=== PATIENT | male | born 1950 | race African-American/Black ===

== ENCOUNTER → 2019-11-18 | Outpatient (CLI) | payer MEDICARE ==
[~2019-11-18] MED LIST: CARV12.544 PO; LOSA25TA38 PO
[2019-11-18 08:54] LABS: Urine WBC None Seen /hpf (0 - 3)
[2019-11-18 09:06] LABS: Hematocrit 37.4 % (41.0-53.0); Hemoglobin 12.7 g/dL (13.5-17.5); Mean Corpuscular Hgb Conc. 34.1 g/dL (32.0-36.0); Mean Corpuscular Volume 114.4 fL (80.0-100.0); Platelet Count (auto) 275 10^3/uL (140-450); Red Blood Cells 3.27 10^6/uL (4.5-5.90); White Blood Cell 2.5 10^3/uL (4.4-10.8)
[2019-11-18 09:10] LABS: Band Neutrophils % (manual) 0; Basophils % (manual) 0 (0.0-2.0); Blast Cells 0; Metamyelocytes % 0; Myelocytes % 0; Promyelocytes % 0
[2019-11-18 09:19] LABS: Urine Bacteria NONE SEEN /hpf (None Seen); Urine Blood Negative /uL (Negative)
[2019-11-18 09:32] LABS: % Iron Saturation 42.1 % (20-55)
[2019-11-18 09:34] LABS: Potassium 3.8 mmol/L (3.5-5.1)
[2019-11-18 09:39] LABS: BUN/Creatinine Ratio 8.1; Bilirubin, Total 0.5 mg/dL (0.2-1.0)
[2019-11-18 09:43] LABS: Folate (Folic Acid) 19.95 ng/mL (5.38-24)
[2019-11-18 09:45] LABS: Eosinophils % (manual) 15 (0-7); Lymphocytes % (manual) 24 (10.0-50.0); Monocytes % (manual) 7 (0-12); Reactive Lymphocytes 1
[2019-11-18 09:46] LABS: Prostate Specific Antigen 7.91 ng/mL (0.0-4.0)
[2019-11-19 11:20] LABS: Hepatitis A Ab IgM Negative; Hepatitis B Core IgM Negative; Hepatitis B Surface Antigen Negative (Negative); Hepatitis C Antibody Negative (Negative)
== END | disposition home or self-care (01) ==
LOC: LAB 08:32
PROVIDERS: ATTEND Internal Medicine
DX: I12.9 Hypertensive chronic kidney disease with stage 1 through stage 4 chronic kidney disease, or unspecified chronic kidney disease (principal); N18.2 Chronic kidney disease, stage 2 (mild); R94.5 Abnormal results of liver function studies; D64.9 Anemia, unspecified; Z12.11 Encounter for screening for malignant neoplasm of colon; C32.3 Malignant neoplasm of laryngeal cartilage; R97.20 Elevated prostate specific antigen [PSA]
CPT/HCPCS: 36415; 80053; 80061; 80074; 81001; 82607; 82746; 83540; 83550; 83615; 84153; 84154; 84443; 85007; 85027

== ENCOUNTER → 2020-09-02 | Outpatient (CLI) | payer MEDICARE | END | disposition home or self-care (01) | LOC: XYW 08:17 | PROVIDERS: ATTEND Internal Medicine | DX: I08.1 Rheumatic disorders of both mitral and tricuspid valves (principal); I11.0 Hypertensive heart disease with heart failure; I50.9 Heart failure, unspecified; I42.9 Cardiomyopathy, unspecified | CPT/HCPCS: 93306 ==

== ENCOUNTER → 2024-07-09 | Outpatient (CLI) | payer MEDICARE, OTHER ==
[~2024-07-09] MED LIST changes: +LOSA-533 PO; -LOSA25TA38 PO
== END | disposition home or self-care (01) ==
LOC: XYW 11:13
PROVIDERS: ATTEND Internal Medicine
DX: I08.3 Combined rheumatic disorders of mitral, aortic and tricuspid valves (principal); I50.9 Heart failure, unspecified
CPT/HCPCS: 93306

== ENCOUNTER 2025-02-26 17:25 | Inpatient (IN) | payer MEDICARE, OTHER ==
[~2025-02-26] VITALS: Ht 177.8 cm; Wt 56.5 kg
--- NOTE | 2025-02-26 17:42 | ECG ---
[facility] Test Date: 2025-02-26 Test Time: 17:41:29 Pat Name: KARLA LUNDY Department: ER Room: 0281T Gender: M Bag Bundler: LIZBET : 1950 Requested By: STEPHANIE HURD Order Number: [id number] Reading MD: Donnie Moreno Measurements Intervals [place] Rate: 92 P: -76 [place]: 155 QRS: -26 QRSD: 190 T: 131 QT: 444 QTc: 550 Interpretive Statements Atrial-sensed ventricular-paced complexes No further rhythm analysis attempted due to paced rhythm Left bundle branch block Baseline wander in lead(s) V2,V3 Electronically Signed On 02-27-2025 21:04:12 PDT by Donnie Moreno Please click the below link to view image of tracing.
--- NOTE | 2025-02-26 17:43 | ED.PDOC ---
History of Present Illness HPI Comments 74 year old male presents to the ED with a chief complaint of generalized weakness onset today (02/26/25). Son states the patient was inside house alone, son walked inside and patient was on the ground. Patient is a poor historian, states he was experiencing weakness. Denies LOC, nausea, vomiting, chest pain, shortness of breath, dizziness, blurry vision. No other symptoms or modifying factors present at this time. Vital signs were stable at arrival. Time Seen by MD: 17:35 Primary Care Provider: CLOVIS Reviewed Notes: Nurses Notes, Medications, Allergies Allergies: Coded Allergies: NO KNOWN ALLERGIES (Unverified , 10/12/19) Home Meds Reported Medications Losartan Potassium (Losartan Potassium) 25 Mg Tab, 25 MG PO DAILY for 30 Days, MG 10/12/19 Carvedilol (Carvedilol) 12.5 Mg Tab, 12.5 MG PO Q12HR for 30 Days, MG 10/12/19 Information Source: Patient, Relative Mode of Arrival: Ambulatory Severity: Moderate Timing: Hours Duration: Since onset Prehospital treatment: None Past Medical History PAST MEDICAL HISTORY: Cancer, HTN Surgical History: Pacemaker Family History Family History: Family hx of Cancer Social History Smoker: Non-Smoker Alcohol: Occasionally Drugs: Denies Drug Use Lives In: Home Constitutional: reports: fatigue, weakness; denies: chills, diaphoresis, fever, malaise, sweats, others EENTM: denies: blurred vision, double vision, ear bleeding, ear discharge, ear drainage, ear pain, ear ringing, eye pain, eye redness, hearing loss, mouth pain, mouth swelling, nasal discharge, nose bleeding, nose congestion, nose pain, photophobia, tearing, throat pain, throat swelling, voice changes, others Respiratory: denies: cough, hemoptysis, orthopnea, SOB at rest, shortness of breath, SOB with excertion, stridor, wheezing, others Cardiovascular: denies: chest pain, dizzy spells, diaphoresis, Dyspnea on exertion, edema, irregular heart beat, left arm pain, lightheadedness, palpitations, PND, syncope, others Gastrointestinal: denies: abdomen distended, abdominal pain, blood streaked bowels, constipated, diarrhea, dysphagia, difficulty swallowing, hematemesis, melena, nausea, poor appetite, poor fluid intake, rectal bleeding, rectal pain, vomiting, others Genitourinary: denies: burning, dysuria, flank pain, frequency, hematuria, incontinence, penile discharge, penile sore, pain, testicle pain, testicle swelling, urgency, others Neurological: reports: weakness; denies: dizziness, fainting, headache, left sided numbness, left sided weakness, numbness, paresthesia, pre-existing deficit, right sided numbness, right sided weakness, seizure, speech problems, tingling, tremors, others Musculoskeletal: denies: back pain, gout, joint pain, joint swelling, muscle pain, muscle stiffness, neck pain, others Integumetry: denies: bruises, change in color, change in hair/nails, dryness, laceration, lesions, lumps, rash, wounds, others Allergic/Immunocompromised: denies: Difficulty Healing, Frequent Infections, Hives, Itching, others Hematologic/Lymphatic: denies: anemia, blood clots, easy bleeding, easy bruising, swollen glands, others Endocrine: denies: excessive hunger, excessive sweating, excessive thirst, excessive urination, flushing, intolerance to cold, intolerance to heat, unexplained weight gain, unexplained weight loss, others Psychiatric: denies: anxiety, bipolar disorder, depression, hopeless, panic disorder, schizophrenia, sleepless, suicidal, others All Other Systems: Reviewed and Negative Physical Exam General Appearance: Mild Distress (Patient was in only mild distress at time of evaluation due to generalized weakness. Patient denied any pain concerns.), Thin HEENT: Normal ENT Inspection, Pharynx Normal, TMs Normal Neck: Full Range of Motion, Non-Tender, Normal, Normal Inspection Respiratory: Chest Non-Tender, No Accessory Muscle Use, Other (I appreciated right middle lobe and right upper lobe.) Cardiovascular: No Edema, No JVD, No Murmur, No Gallop, Normal Peripheral Pulses, Regular Rate/Rhythm Breast Exam: Deferred Gastrointestinal: Non Tender, No Pulsatile Mass, Normal Bowel Sounds, Soft Genitalia: Deferred Pelvic: Deferred Rectal: Deferred Extremities: No calf tenderness, Normal capillary refill, Normal inspection, Normal range of motion, Non-tender, No pedal edema Musculoskeletal : Apperance: Normal Neurologic: Alert, No Motor Deficits, Normal Affect, Normal Mood Cerebellar Function: NOT DONE Reflexes: NOT DONE Skin: Dry, Normal Color, Warm Lymphatic: No Adenopathy Was a procedure done? Was a procedure done?: No Differential Dx Considerations may include: Sepsis, electrolyte abnormality, acute coronary syndrome, pneumonia, CHF, dehydration X-Ray, Labs, Meds, VS Vital Signs Date Time Temp Pulse Resp B/P (MAP) Pulse Ox O2 Delivery O2 Flow Rate FiO2 02/26/25 18:01 90 14 163/90 (114) 95 02/26/25 17:55 97.8 92 18 146/88 (107) 97 97.8 02/26/25 17:41 92 Lab Test 02/26/25 18:45 02/26/25 18:32 02/26/25 17:56 02/26/25 17:36 Range/Units Troponin I High Sensitivity 73 *H 81 *H </=54 ng/L POC Glucose 94 114 H 70-106 mg/dl White Blood Count 4.4 4.4-10.8 10^3/uL Red Blood Count 2.73 L 4.5-5.90 10^6/uL Hemoglobin 10.7 L 13.5-17.5 g/dL Hematocrit 30.3 L 41.0-53.0 % Mean Corpuscular Volume 111.2 H 80.0-100.0 fL Mean Corpuscular Hemoglobin 39.2 H 28.0-32.0 pg Mean Corpuscular Hemoglobin Concent 35.3 32.0-36.0 g/dL Red Cell Distribution Width 13.6 11.8-14.3 % Platelet Count 185 140-450 10^3/uL Mean Platelet Volume 7.2 6.9-10.8 fL Neutrophils (%) (Auto) 88.1 H 37.0-80.0 % Lymphocytes (%) (Auto) 4.0 L 10.0-50.0 % Monocytes (%) (Auto) 7.9 0.0-12.0 % Eosinophils (%) (Auto) 0.0 0.0-7.0 % Basophils (%) (Auto) 0.0 0.0-2.0 % Neutrophils # (Auto) 3.9 1.6-8.6 10 ^3/uL Lymphocytes # (Auto) 0.2 L 0.4-5.4 10 ^3/uL Monocytes # (Auto) 0.3 0-1.3 10 ^3/uL Eosinophils # (Auto) 0 0-0.8 10 ^3/uL Basophils # (Auto) 0 0-0.2 10 ^3/uL Nucleated Red Blood Cells 0.0 % Platelet Estimate Adequate Macrocytosis Slight Sodium Level 110 *L 136-145 mmol/L Potassium Level 4.2 3.5-5.1 mmol/L Chloride Level 77 L 98-107 mmol/L Carbon Dioxide Level 22 20-31 mmol/L Anion Gap 11 5-15 Blood Urea Nitrogen 19 9-23 mg/dL Creatinine 1.63 H 0.700-1.30 mg/dL Glomerular Filtration Rate Calc 43 >90 mL/min BUN/Creatinine Ratio 11.7 10.0-20.0 Serum Glucose 102 74-106 mg/dL Lactic Acid Level 3.4 *H 0.4-2.0 mmol/L Calcium Level 9.0 8.7-10.4 mg/dL Total Bilirubin 1.3 H 0.2-1.0 mg/dL Aspartate Amino Transferase (AST) 48 H 13-40 U/L Alanine Aminotransferase (ALT) 16 7-40 U/L Alkaline Phosphatase 54 46-116 U/L B-Type Natriuretic Peptide 3645.84 0-100 pg/mL Total Protein 6.8 5.7-8.2 g/dL Albumin 4.3 3.2-4.8 g/dL X-Ray, Labs, Meds, VS Comment All studies performed the ED were evaluated by me personally. Serum laboratories revealed an anemic state, significant hyponatremia state, elevated lactic acid, elevated troponin, elevated bilirubin and significant acute on chronic CHF concerns. EKG revealed an atrial sensed ventricular paced complex as the patient states he has a pacemaker. Left bundle-branch block was noted and [place] interval was 155 and QT interval was 444. Dr. Billingsley was notified of the elevated troponins and unusual EKG. He stated that the patient was experiencing left bundle-branch block and documentation liaison he will continue to follow after admission. Patient will be admitted for his concerning CHF issues and hyponatremia state. Time of 1ST Reevaluation: 19:33 Reevaluation 1ST: Improved Consultation: PCP, Cardiology Patient Education/Counseling: Diagnosis, Treatment, Prognosis Family Education/Counseling: Diagnosis, Treatment, No Family Present Departure 1 Departure Time of Disposition: 19:33 Impression: Primary Impression: Acute exacerbation of CHF (congestive heart failure) Additional Impressions: Elevated troponin I level Hyponatremia Anemia Elevated lactic acid level Elevated bilirubin Disposition: ADMITTED INPATIENT Condition: Fair Discharged With: Self Critical Care Note Critical Care Time?: No Stability Stability form required: No Heart Score Heart Score: Heart Score Response (Comments) Value History Slightly Suspicious 0 EKG Repolarization Disturb 1 Age >65 2 Risk Factors 1 or 2 risk factors 1 Troponin 1-2 x's Normal limit 1 Total 5 I personally scribed for STEPHANIE HURD PAC ([email or web address]) on 02/26/25 at 17:43. Electronically submitted by Tresa Hastings ([email or web address]). I personally scribed for STEPHANIE HURD PAC ([email or web address]) on 02/26/25 at 17:54. Electronically submitted by Tresa Hastings [email or web address]). STEPHANIE HURD PAC February 26, 2025 17:43
[2025-02-26 18:10] LABS: Basophils # (auto) 0 10 ^3/uL (0-0.2); Eosinophils # (auto) 0 10 ^3/uL (0-0.8); Lymphocytes # (auto) 0.2 10 ^3/uL (0.4-5.4); Monocytes # (auto) 0.3 10 ^3/uL (0-1.3); Red Cell Distribution Width 13.6 % (11.8-14.3)
[2025-02-26 18:12] LABS: Hematocrit 30.3 % (41.0-53.0); Hemoglobin 10.7 g/dL (13.5-17.5); Mean Corpuscular Hemoglobin 39.2 pg (28.0-32.0); Mean Corpuscular Hgb Conc. 35.3 g/dL (32.0-36.0); Mean Corpuscular Volume 111.2 fL (80.0-100.0); Monocytes % (auto) 7.9 % (0.0-12.0); Neutrophils # (auto) 3.9 10 ^3/uL (1.6-8.6); Neutrophils % (auto) 88.1 % (37.0-80.0); Platelet Count (auto) 185 10^3/uL (140-450); Red Blood Cells 2.73 10^6/uL (4.5-5.90); White Blood Cell 4.4 10^3/uL (4.4-10.8)
[2025-02-26 18:22] LABS: Alanine Aminotransferase 16 U/L (7-40); Alkaline Phosphatase 54 U/L (46-116); Anion Gap 11 (5-15); BUN/Creatinine Ratio 11.7 (10.0-20.0); Blood Urea Nitrogen 19 mg/dL (9-23); Carbon Dioxide 22 mmol/L (20-31); Glucose 102 mg/dL (74-106); Potassium 4.2 mmol/L (3.5-5.1); Total Protein 6.8 g/dL (5.7-8.2)
[2025-02-26 18:23] LABS: Albumin 4.3 g/dL (3.2-4.8)
[2025-02-26 18:29] LABS: Aspartate Aminotransferase 48 U/L (13-40); Bilirubin, Total 1.3 mg/dL (0.2-1.0); Chloride 77 mmol/L (98-107)
[2025-02-26 18:31] LABS: Sodium 110 mmol/L (136-145)
[2025-02-26 18:32] LABS: Lactic Acid w/Reflex 3.4 mmol/L (0.4-2.0)
[2025-02-26] MEDS: FUROSEMIDE 100 MG/10ML VIAL IV ONE (19:15)
[2025-02-26] MEDS: SODIUM CHLORIDE 0.9% 1,000 ML IV ONE (19:15)
[2025-02-26 19:19] LABS: Macrocytosis Slight; Platelet Estimate Adequate
[2025-02-26 19:25] VITALS: PULSE 93; RESP 20; O2SAT 99
--- NOTE | 2025-02-26 19:55 | DVH ---
EXAM: XR Chest, 1 View CLINICAL INDICATION: Shortness of breath TECHNIQUE: Frontal view of the chest. COMPARISON: None FINDINGS: LUNGS AND PLEURAL SPACES: See below. HEART: Cardiomegaly with moderate congestion. Left cardiac. MEDIASTINUM: Unremarkable. Normal mediastinal contour. BONES/JOINTS: Unremarkable. No acute fracture. OTHER FINDINGS: . IMPRESSION: Cardiomegaly with moderate congestion.
[2025-02-26] MEDS ORDERED: ONDANSETRON HCL 4 MG/2 ML VIAL IV PRN (20:15)
[2025-02-26] MEDS ORDERED: hydrALAZINE HCL 20 MG/ML VL IV PRN (20:15)
[2025-02-26] MEDS: SODIUM CHLORIDE 1 GM TAB PO ONE (20:15)
[2025-02-26] MEDS ORDERED: ACETAMINOPHEN 325 MG TAB PO PRN (20:15)
[2025-02-26 21:00] VITALS: PULSE 100; RESP 19; O2SAT 99
--- NOTE | 2025-02-26 21:27 | DVHHP2 ---
History of Present Illness Reason for Visit: Acute exacerbation of CHF (congestive heart failure) History of Present Illness The patient is a 74-year-old male with past medical history of throat cancer, CHF, and hypertension who presented to [facility] ED with complaint of generalized weakness. Patient's son reports he was found on the ground extremely weak. Patient was seen and evaluated in the ED, laboratory data shows WBC 4.4, hemoglobin 10.7, hematocrit 30.3, platelets 185, sodium 110, potassium 4.2, BUN 19, creatinine 1.63, glucose 102, total bilirubin 1.3, AST 48, ALT 16, lactic acid 3.4 trending down to 2.0, BNP 3645.84, troponin 81, blood pressure 163/90, heart rate 90, temperature 97.8 F, O2 saturation 98% on oxygen. Chest x-ray revealing cardiomegaly with moderate congestion. Patient was started on IV Lasix, please see medication orders section in the computer. On my assessment, patient denies chest pain, no headache, no dizziness, no diaphoresis, currently on oxygen, no nausea, no vomiting, no fever, no chills. Patient was admitted for further evaluation and medical management. Past Medical History Throat cancer, HTN, CHF Past Surgical History Pacemaker Family History Reviewed, noncontributory to the management of this case. Past Social History The patient lives at home, denies smoking, alcohol or illicit drugs abuse. Review of Systems Constitutional: Yes: Weakness, Other (Fatigue); No: Fever, Chills, Sweats, Malaise Eyes: No: Pain, Vision change, Conjunctivae inflammation, Eyelid inflammation, Other, Redness ENT: No: Ear pain, Ear discharge, Nose pain, Nose discharge, Nose congestion, Mouth pain, Mouth swelling, Throat pain, Throat swelling, Other Respiratory: No: Cough, Dry, Shortness of breath, SOB with excertion, Wheezing, Hemoptysis, Pleuritic Pain, Sputum, Wheezing, Other Cardiovascular: No: Chest Pain, Palpitations, Orthopnea, Paroxysmal Noc. Dyspnea, Edema, Lt Headedness, Other Gastrointestinal: No: Nausea, Vomiting, Abdominal Pain, Diarrhea, Constipation, Melena, Hematochezia, Other Genitourinary: No Dysuria, No Frequency, No Incontinence, No Hematuria, No Retention, No Other Musculoskeletal: No: other, neck pain, shoulder pain, arm pain, back pain, hand pain, leg pain, foot pain Skin: No: Rash, Lesions, Jaundice, Bruising, Other Neurological: Weakness; No: Numbness, Incoordination, Change in speech, Confusion, Seizures, Other Allergies: Coded Allergies: NO KNOWN ALLERGIES (Unverified , 10/12/19) Medications Current Medications Medications Dose Ordered Sig/Earl Route Start Time Stop Time Status Last Admin Dose Admin Furosemide 40 mg DAILY IV 02/27/25 10:00 Carvedilol 3.125 mg Q12HR PO 02/26/25 22:00 Hydralazine HCl 10 mg Q6HP PRN IV 02/26/25 20:15 Aspirin 81 mg DAILY PO 02/27/25 10:00 Sodium Chloride 10 ml Q8HR IV 02/26/25 22:00 Acetaminophen/ Hydrocodone Bitart 1 tab Q4HP PRN PO 02/26/25 20:15 Ondansetron HCl 4 mg Q4HP PRN IV 02/26/25 20:15 Docusate Sodium 100 mg BIDPRN PRN PO 02/26/25 20:15 Acetaminophen 650 mg Q6HP PRN PO 02/26/25 20:15 Exam Vital Signs Vital Signs Date Time Temp Pulse Resp B/P (MAP) Pulse Ox O2 Delivery O2 Flow Rate FiO2 02/26/25 20:57 98.8 93 19 151/88 (109) 99 98.8 02/26/25 19:25 Nasal Cannula* 2 28 General Appearance: Alert, Oriented X3, Cooperative, No acute distress HEENT: Atraumatic, PERRLA, EOMI, Mucous membr. moist/pink Respiratory: Normal air movement, Other (Diminished breath sounds) Cardiovascular: Regular rate, Normal S1, Normal S2, No murmurs Abdominal: Normal bowel sounds, Soft, No tenderness, No hepatospenomegaly, No masses Extremities: No clubbing, No cyanosis, No edema, Normal pulses, No tenderness/swelling Skin: No rashes, No breakdown, No significant lesion Neuro: Normal speech, Normal tone, Sensation intact, Cranial nerves 3-12 NL, Reflexes 2+, Other (Generalized weakness) Psych/Mental Status: Mental status NL, Mood NL Labs/Xrays Labs Test 02/26/25 20:56 02/26/25 19:46 02/26/25 18:32 02/26/25 17:56 Range/Units Lactic Acid Level 2.0 0.4-2.0 mmol/L POC Glucose 94 70-106 mg/dl White Blood Count 4.4 4.4-10.8 10^3/uL Red Blood Count 2.73 L 4.5-5.90 10^6/uL Hemoglobin 10.7 L 13.5-17.5 g/dL Hematocrit 30.3 L 41.0-53.0 % Mean Corpuscular Volume 111.2 H 80.0-100.0 fL Mean Corpuscular Hemoglobin 39.2 H 28.0-32.0 pg Mean Corpuscular Hemoglobin Concent 35.3 32.0-36.0 g/dL Red Cell Distribution Width 13.6 11.8-14.3 % Platelet Count 185 140-450 10^3/uL Mean Platelet Volume 7.2 6.9-10.8 fL Neutrophils (%) (Auto) 88.1 H 37.0-80.0 % Lymphocytes (%) (Auto) 4.0 L 10.0-50.0 % Monocytes (%) (Auto) 7.9 0.0-12.0 % Eosinophils (%) (Auto) 0.0 0.0-7.0 % Basophils (%) (Auto) 0.0 0.0-2.0 % Neutrophils # (Auto) 3.9 1.6-8.6 10 ^3/uL Lymphocytes # (Auto) 0.2 L 0.4-5.4 10 ^3/uL Monocytes # (Auto) 0.3 0-1.3 10 ^3/uL Eosinophils # (Auto) 0 0-0.8 10 ^3/uL Basophils # (Auto) 0 0-0.2 10 ^3/uL Nucleated Red Blood Cells 0.0 % Platelet Estimate Adequate Macrocytosis Slight Sodium Level 110 *L 136-145 mmol/L Potassium Level 4.2 3.5-5.1 mmol/L Chloride Level 77 L 98-107 mmol/L Carbon Dioxide Level 22 20-31 mmol/L Anion Gap 11 5-15 Blood Urea Nitrogen 19 9-23 mg/dL Creatinine 1.63 H 0.700-1.30 mg/dL Glomerular Filtration Rate Calc 43 >90 mL/min BUN/Creatinine Ratio 11.7 10.0-20.0 Serum Glucose 102 74-106 mg/dL Calcium Level 9.0 8.7-10.4 mg/dL Total Bilirubin 1.3 H 0.2-1.0 mg/dL Aspartate Amino Transferase (AST) 48 H 13-40 U/L Alanine Aminotransferase (ALT) 16 7-40 U/L Alkaline Phosphatase 54 46-116 U/L B-Type Natriuretic Peptide 3645.84 0-100 pg/mL Total Protein 6.8 5.7-8.2 g/dL Albumin 4.3 3.2-4.8 g/dL PATIENT: KARLA LUNDY ACCT: [id number] UNIT: [id number] : 1950 LOC: ER ROOM / BED: / AGE / SEX: 74 / M ADM STATUS: REG ER SERVICE 22 ORDERING PHYSICIAN: STEPHANIE HURD PAC PROCEDURE(s): CXRP - CHEST PORTABLE REASON: Shortness of breath ORDER NUMBER(s): [id number], ACCESSION NUMBER(s): [id number] EXAM: XR Chest, 1 View CLINICAL INDICATION: Shortness of breath TECHNIQUE: Frontal view of the chest. COMPARISON: None FINDINGS: LUNGS AND PLEURAL SPACES: See below. HEART: Cardiomegaly with moderate congestion. Left cardiac. MEDIASTINUM: Unremarkable. Normal mediastinal contour. BONES/JOINTS: Unremarkable. No acute fracture. OTHER FINDINGS: IMPRESSION: Cardiomegaly with moderate congestion. Assessment/Plan Assessment/Plan Acute exacerbation of CHF (congestive heart failure) Hyponatremia Acute on chronic renal failure Elevated troponin I level Elevated bilirubin Anemia, unspecified Elevated lactic acid level Generalized weakness Plan 1. Admit to telemetry unit 2. Breathing treatment 3. Pain control management 4. Management of fluids and electrolytes 5. Consultation for hospitalist 6. Diagnostic tests chest x-ray 7. DVT prophylaxis-on aspirin 8. Repeat labs CBC, CMP in a.m. 9. Continue with current medical management 10. Treatment plan discussed with patient and RN. Patient verbalized understanding. Plan discussed with: Patient, Other (RN) My Orders Orders - HAI WADE DNP Procedure Category Date Status Time Furosemide Injection PHA 02/27/25 In Process (Lasix Injection) 10:00 Carvedilol Tablet PHA 02/26/25 In Process (Coreg Tablet) 22:00 Hydralazine Injection PHA 02/26/25 In Process (Apresoline Inject 20:15 *[facility] CONS 02/26/25 Transmitted -[place] 20:10 Aspirin Tablet PHA 02/27/25 In Process 10:00 Allergies PIPPA 02/26/25 In Process 20:10 Code Status CODE 02/26/25 Transmitted 20:10 Sodium Chloride Lock PHA 02/26/25 In Process (Saline Lock Ns) 22:00 Oxygen Per Hour RT 02/26/25 Transmitted 20:10 Hydrocodone-Acet PHA 02/26/25 In Process 5325mg Tab ([place] 20:15 Ondansetron Hcl PHA 02/26/25 In Process (Zofran) 20:15 Docusate Sodium PHA 02/26/25 In Process Capsule (Colace 20:15 Fall Risk Precautions PIPPA 02/26/[address] 20:10 Complete Blood Count LAB 02/27/25 Verified 04:00 Comprehensive LAB 02/27/25 Verified Metabolic Panel 04:00 Cardiac DIET 02/27/25 Transmitted Diet-2gna,Lofat,Lochol Breakfast Echo 2d Mode Cardiac US 02/26/25 Logged DOP 20:10 Condition: Serious PIPPA 02/26/25 In Process 20:10 Acetaminophen Tablet PHA 02/26/25 In Process (Tylenol Tablet) 20:15 Bedrest With Bathroom PIPPA 02/26/25 In Process Privileg 20:10 Sequential PIPPA 02/26/25 In Process Compression Device Admit ADMIT 02/26/25 Verified 21:26 Nitroglycerin [facility] 02/26/25 Verified Sublingual (Ntrostat 21:30 Morphine Sulfate PHA 02/26/25 Verified Injection 21:30 Stat Ekg For Chest [facility] 02/26/25 Verified Pain 21:26 Notify Md Of Changes [facility] 02/26/25 Verified From Base 21:26 Middle School Football Coach For [facility] 02/26/25 Verified 24 Hours 21:26 Emergency Dysrhythmia [facility] 02/26/25 Verified Protocol 21:26 Rhythm Strips Once PIPPA 02/26/25 Verified Every Shift 21:26 Oxygen By Nasal RT 02/26/25 Verified Cannula 21:26 Problem List: (1) Acute exacerbation of CHF (congestive heart failure) (2) Anemia, unspecified (3) Hyponatremia (4) Elevated bilirubin (5) Elevated troponin I level (6) Generalized weakness (7) Acute on chronic renal failure (8) Elevated lactic acid level Date of Service: February 26, 2025 Billing Provider: HAI WADE DNP Common Visit Codes: [id number] INP/OBS CARE (HIGH) HAI WADE DNP February 26, 2025 21:27
[2025-02-26] MEDS ORDERED: MORPHINE SULFATE INJ 2 MG/ml SYRG IV PRN (21:30)
[2025-02-26] MEDS ORDERED: NITROGLYCERIN 0.4 MG SL TAB SL PRN (21:30)
[2025-02-26 21:46] LABS: Anion Gap 10 (5-15); Calcium 9.4 mg/dL (8.7-10.4); Carbon Dioxide 21 mmol/L (20-31)
[2025-02-26 21:51] LABS: BUN/Creatinine Ratio 11.8 (10.0-20.0); Blood Urea Nitrogen 19 mg/dL (9-23); Glucose 92 mg/dL (74-106)
[2025-02-26 21:53] LABS: Chloride 80 mmol/L (98-107)
[2025-02-26 21:57] LABS: Sodium 111 mmol/L (136-145)
[2025-02-26] MEDS: CARVEDILOL 3.125 MG TAB PO SCH (22:09)
[2025-02-26] MEDS: SODIUM CHLOR 0.9% PF (SALINE LOCK) 10ML VIAL/SYR IV SCH (22:10)
[2025-02-26] MEDS: ASPirin 81 mg TAB PO ONE (22:10)
[2025-02-26 23:48] VITALS: BP_SYST 116; BP_SYST 130; BP_DIAS 76; PULSE 74; PULSE 96; RESP 16; RESP 18; RESP 19; TEMP 98; TEMP 98.7; O2SAT 96; O2SAT 98
[2025-02-27] VITALS (7 sets, daily range): BP systolic 124–146; BP diastolic 77–94; PULSE 76–86; RESP 16–19; TEMP 97.5–98; O2SAT 96–100
[2025-02-27] MEDS ORDERED: ASPI-543 PO (01:30)
[2025-02-27 06:57] LABS: Basophils # (auto) 0 10 ^3/uL (0-0.2); Basophils % (auto) 0.1 % (0.0-2.0); Eosinophils # (auto) 0 10 ^3/uL (0-0.8); Monocytes # (auto) 0.3 10 ^3/uL (0-1.3); Neutrophils # (auto) 2.8 10 ^3/uL (1.6-8.6); Red Blood Cells 2.55 10^6/uL (4.5-5.90)
[2025-02-27 07:00] LABS: Eosinophils % (auto) 0.1 % (0.0-7.0); Hematocrit 28.2 % (41.0-53.0); Lymphocytes # (auto) 0.2 10 ^3/uL (0.4-5.4); Lymphocytes % (auto) 7.2 % (10.0-50.0); Mean Corpuscular Hemoglobin 39.3 pg (28.0-32.0); Mean Corpuscular Hgb Conc. 35.6 g/dL (32.0-36.0); Mean Corpuscular Volume 110.4 fL (80.0-100.0); Monocytes % (auto) 9.7 % (0.0-12.0); Neutrophils % (auto) 82.9 % (37.0-80.0); Platelet Count (auto) 155 10^3/uL (140-450); Red Cell Distribution Width 13.7 % (11.8-14.3); White Blood Cell 3.3 10^3/uL (4.4-10.8)
[2025-02-27 07:15] LABS: Alanine Aminotransferase 16 U/L (7-40); Albumin 3.7 g/dL (3.2-4.8); Alkaline Phosphatase 49 U/L (46-116); Anion Gap 9 (5-15); Blood Urea Nitrogen 20 mg/dL (9-23); Calcium 9.2 mg/dL (8.7-10.4); Carbon Dioxide 22 mmol/L (20-31); Glucose 94 mg/dL (74-106); Potassium 3.9 mmol/L (3.5-5.1)
[2025-02-27 07:35] LABS: Aspartate Aminotransferase 46 U/L (13-40); Chloride 80 mmol/L (98-107)
[2025-02-27 07:38] LABS: Sodium 111 mmol/L (136-145)
[2025-02-27] MEDS ORDERED: SODIUM CHLORIDE 0.9% 1,000 ML IV SCH (09:00)
[2025-02-27] MEDS: SODIUM CHL 3% 250 ML IV ONE (09:00)
[2025-02-27] MEDS: FUROSEMIDE 40 MG/4 ML VIAL IV SCH (10:00)
[2025-02-27] MEDS: ASPirin 81 mg TAB PO SCH (10:31)
[2025-02-27] MEDS: FUROSEMIDE 40 MG/4 ML VIAL IV ONE (10:32)
--- NOTE | 2025-02-27 13:30 | DVHINCON2 ---
Date of service: February 27, 2025 Referring Physician bertha Reason for Consultation Hyponatremia Acute kidney injury History of Present Illness 74 years old male with past medical history of throat cancer, Congestive heart failure, hypertension, Chronic kidney disease three, presented with chief comp laints of unable to walk and generalized weakness patient is a poor historian he does not know his medications Nephrology consulted for hyponatremia Home meds noted on med rec Patient denies any headache, denies [employer]CRE[employer] symptoms he answers questions appropriately but says he can not walk for the past 2 to 3 days Past Medical History As per [facility] Past Surgical History Unknown exactly Allergies: Coded Allergies: NO KNOWN ALLERGIES (Unverified , 10/12/19) Home Meds Reported Medications Aspirin (Aspir-Low) 81 Mg Tab, 81 MG PO DAILY for 30 Days, MG 02/27/25 Losartan Potassium (Losartan Potassium) 25 Mg Tab, 25 MG PO DAILY for 30 Days, MG 10/12/19 Carvedilol (Carvedilol) 12.5 Mg Tab, 12.5 MG PO Q12HR for 30 Days, MG 10/12/19 Current Medications Current Medications Medications (Trade) Dose Ordered Sig/Earl Route PRN Reason Start Time Stop Time Status Last Admin Furosemide (Lasix Injection) 40 mg DAILY IV 02/27/25 10:00 Carvedilol (Coreg Tablet) 3.125 mg Q12HR PO 02/26/25 22:00 02/27/25 10:32 Hydralazine HCl (Apresoline Injection) 10 mg Q6HP PRN IV SBP>150 02/26/25 20:15 Aspirin 81 mg DAILY PO 02/27/25 10:00 02/27/25 10:31 Sodium Chloride (Saline Lock Ns) 10 ml Q8HR IV 02/26/25 22:00 02/27/25 05:57 Acetaminophen/ Hydrocodone Bitart (Widen 5/325MG Tab) 1 tab Q4HP PRN PO MODERATE PAIN (4-6 PAIN SCALE) 02/26/25 20:15 Ondansetron HCl (Zofran) 4 mg Q4HP PRN IV NAUSEA / VOMITING 02/26/25 20:15 Docusate Sodium (Colace Capsule) 100 mg BIDPRN PRN PO FOR CONSTIPATION 02/26/25 20:15 Acetaminophen (Tylenol Tablet) 650 mg Q6HP PRN PO PAIN SCALE 1-3 OR TEMP>100.4 02/26/25 20:15 Nitroglycerin (Ntrostat Sublingual) 0.4 mg Q5MINP PRN SL FOR CHEST PAIN 02/26/25 21:30 Morphine Sulfate 2 mg Q30M PRN IV FOR CHEST PAIN 02/26/25 21:30 Sodium Chloride 1,000 ml @ 42 mls/hr [id number] IV 02/27/25 09:00 02/27/25 09:08 DC Family History: Patient reports no known family medical history. Review of Systems As documented in HPI H&P Exam Vital Signs/I&O Vital Sign Date Time Temp Pulse Resp B/P (MAP) Pulse Ox O2 Delivery O2 Flow Rate FiO2 02/27/25 13:04 97.6 76 19 138/90 (106) 99 97.6 02/26/25 23:48 Nasal Cannula* 3 32 Intake and Output 02/26/25 02/27/25 19:00 07:00 Intake Total 1240 ml Balance 1240 ml Intake Oral 240 ml IV Total 1000 ml Physical Exam General-not in any distress HEENT-normocephalic, no icterus, no pallor, neck supple Respiratory-fair air entry bilateral, no rhonchi, no wheeze [id number] heard, no murmurs appreciated Abdominal-soft, nontender, nondistended Musculoskeletal-left leg more swollen right leg no edema positive tenderness both legs Genitourinary-deferred Neuro-awake alert oriented x3, Psychiatric-not agitated, cooperative, Labs/Diagnostic Data Labs/Diagnostic Data Laboratory Tests Test 02/27/25 09:45 02/27/25 06:31 02/26/25 20:56 02/26/25 19:46 Range/Units Sodium Level 112 *L 111 *L 111 *L 136-145 mmol/L White Blood Count 3.3 L 4.4-10.8 10^3/uL Red Blood Count 2.55 L 4.5-5.90 10^6/uL Hemoglobin 10.0 L 13.5-17.5 g/dL Hematocrit 28.2 L 41.0-53.0 % Mean Corpuscular Volume 110.4 H 80.0-100.0 fL Mean Corpuscular Hemoglobin 39.3 H 28.0-32.0 pg Mean Corpuscular Hemoglobin Concent 35.6 32.0-36.0 g/dL Red Cell Distribution Width 13.7 11.8-14.3 % Platelet Count 155 140-450 10^3/uL Mean Platelet Volume 7.3 6.9-10.8 fL Neutrophils (%) (Auto) 82.9 H 37.0-80.0 % Lymphocytes (%) (Auto) 7.2 L 10.0-50.0 % Monocytes (%) (Auto) 9.7 0.0-12.0 % Eosinophils (%) (Auto) 0.1 0.0-7.0 % Basophils (%) (Auto) 0.1 0.0-2.0 % Neutrophils # (Auto) 2.8 1.6-8.6 10 ^3/uL Lymphocytes # (Auto) 0.2 L 0.4-5.4 10 ^3/uL Monocytes # (Auto) 0.3 0-1.3 10 ^3/uL Eosinophils # (Auto) 0 0-0.8 10 ^3/uL Basophils # (Auto) 0 0-0.2 10 ^3/uL Nucleated Red Blood Cells 0.0 % Potassium Level 3.9 4.0 3.5-5.1 mmol/L Chloride Level 80 L 80 L 98-107 mmol/L Carbon Dioxide Level 22 21 20-31 mmol/L Anion Gap 9 10 5-15 Blood Urea Nitrogen 20 19 9-23 mg/dL Creatinine 1.67 H 1.61 H 0.700-1.30 mg/dL Glomerular Filtration Rate Calc 42 44 >90 mL/min BUN/Creatinine Ratio 12.0 11.8 10.0-20.0 Serum Glucose 94 92 74-106 mg/dL Serum Osmolality 238 L 278-298 mOsm/kg Uric Acid 7.5 3.7-9.2 mg/dL Calcium Level 9.2 9.4 8.7-10.4 mg/dL Total Bilirubin 1.0 0.2-1.0 mg/dL Aspartate Amino Transferase (AST) 46 H 13-40 U/L Alanine Aminotransferase (ALT) 16 7-40 U/L Alkaline Phosphatase 49 46-116 U/L Total Protein 6.0 5.7-8.2 g/dL Albumin 3.7 3.2-4.8 g/dL Troponin I High Sensitivity 79 *H </=54 ng/L Lactic Acid Level 2.0 0.4-2.0 mmol/L Test 02/26/25 18:45 02/26/25 18:32 02/26/25 17:56 02/26/25 17:36 Range/Units Troponin I High Sensitivity 73 *H 81 *H </=54 ng/L POC Glucose 94 114 H 70-106 mg/dl White Blood Count 4.4 4.4-10.8 10^3/uL Red Blood Count 2.73 L 4.5-5.90 10^6/uL Hemoglobin 10.7 L 13.5-17.5 g/dL Hematocrit 30.3 L 41.0-53.0 % Mean Corpuscular Volume 111.2 H 80.0-100.0 fL Mean Corpuscular Hemoglobin 39.2 H 28.0-32.0 pg Mean Corpuscular Hemoglobin Concent 35.3 32.0-36.0 g/dL Red Cell Distribution Width 13.6 11.8-14.3 % Platelet Count 185 140-450 10^3/uL Mean Platelet Volume 7.2 6.9-10.8 fL Neutrophils (%) (Auto) 88.1 H 37.0-80.0 % Lymphocytes (%) (Auto) 4.0 L 10.0-50.0 % Monocytes (%) (Auto) 7.9 0.0-12.0 % Eosinophils (%) (Auto) 0.0 0.0-7.0 % Basophils (%) (Auto) 0.0 0.0-2.0 % Neutrophils # (Auto) 3.9 1.6-8.6 10 ^3/uL Lymphocytes # (Auto) 0.2 L 0.4-5.4 10 ^3/uL Monocytes # (Auto) 0.3 0-1.3 10 ^3/uL Eosinophils # (Auto) 0 0-0.8 10 ^3/uL Basophils # (Auto) 0 0-0.2 10 ^3/uL Nucleated Red Blood Cells 0.0 % Platelet Estimate Adequate Macrocytosis Slight Sodium Level 110 *L 136-145 mmol/L Potassium Level 4.2 3.5-5.1 mmol/L Chloride Level 77 L 98-107 mmol/L Carbon Dioxide Level 22 20-31 mmol/L Anion Gap 11 5-15 Blood Urea Nitrogen 19 9-23 mg/dL Creatinine 1.63 H 0.700-1.30 mg/dL Glomerular Filtration Rate Calc 43 >90 mL/min BUN/Creatinine Ratio 11.7 10.0-20.0 Serum Glucose 102 74-106 mg/dL Lactic Acid Level 3.4 *H 0.4-2.0 mmol/L Calcium Level 9.0 8.7-10.4 mg/dL Total Bilirubin 1.3 H 0.2-1.0 mg/dL Aspartate Amino Transferase (AST) 48 H 13-40 U/L Alanine Aminotransferase (ALT) 16 7-40 U/L Alkaline Phosphatase 54 46-116 U/L B-Type Natriuretic Peptide 3645.84 0-100 pg/mL Total Protein 6.8 5.7-8.2 g/dL Albumin 4.3 3.2-4.8 g/dL Assessment Severe hyponatremia symptomatic Acute kidney injury on Chronic kidney disease IIIb unknown baseline available Rule out Congestive heart failure Recommendations 3 percent saline as ordered Check serum osmolality, urine osmolality, urine sodium, uric acid Sodium check every 4 hours Avoid rapid correction no more than 6-8 mEq in 24 hours Continue diuretics We will follow closely Echo pending kidney ultrasound pending Reviewed vital signs, lab work, imaging studies, medications, microbiology, other physician recommendations Total time spent 80 minutes More than 50% of the time spent providing direct hvhi-an-mewa care . Thank you for allowing me to participate in the care of your patient. Plan discussed with: Patient MELINA ROBERTSON MD February 27, 2025 13:30
--- NOTE | 2025-02-27 15:08 | DVH ---
INDICATION: rhiannon TECHNIQUE: Multiple real-time sonographic images of the kidneys and bladder were obtained. COMPARISON: None FINDINGS: The right kidney measures 7.76 cm in length, which is normal in size. There is normal echog enicity of the right kidney. No hydronephrosis. The left kidney measures 7.64 cm in length, which is normal in size. There is normal echogenicity of the left kidney. No hydronephrosis. No large intraluminal masses are seen in the bladder. Prior to voiding the bladder volume measures vo lume 647.9 cc. Bladder wall 0.99 mm patient unable to void. Bilateral pleural effusions IMPRESSION: 1. Right kidney measures 7.76 cm long. Left kidney measures 7.64 cm long. 2. No hydronephrosis on the right and left. 3. Bilateral pleural effusions. 4. Bladder contained 600 and 47.9 mL of urine. Patient had no urge to void.
--- NOTE | 2025-02-27 16:11 | DVHPN2 ---
Subjective in bed resting but having SOB Changes from previous H/P or p: No Changes Eyes: No Pain, No Vision change, No Conjunctivae inflammation, No Eyelid inflammation, No Other, No Redness ENT: No Ear pain, No Ear discharge, No Nose pain, No Nose discharge, No Nose congestion, No Mouth pain, No Mouth swelling, No Throat pain, No Throat swelling, No Other Cardiovascular: No Chest Pain, No Palpitations, No Orthopnea, No Paroxysmal Noc. Dyspnea, No Edema, No Lt Headedness, No Other Respiratory: No Cough, No Dry, No Shortness of breath, No SOB with excertion, No Wheezing, No Hemoptysis, No Pleuritic Pain, No Sputum, No Other Gastrointestinal: No Nausea, No Vomiting, No Abdominal Pain, No Diarrhea, No Constipation, No Melena, No Hematochezia, No Other Genitourinary: No Dysuria, No Frequency, No Incontinence, No Hematuria, No Retention, No Other Musculoskeletal: No other, No neck pain, No shoulder pain, No arm pain, No back pain, No hand pain, No leg pain, No foot pain Skin: No Rash, No Lesions, No Jaundice, No Bruising, No Other Objective Vitals Vital Signs Date Time Temp Pulse Resp B/P (MAP) Pulse Ox O2 Delivery O2 Flow Rate FiO2 02/27/25 13:04 97.6 76 19 138/90 (106) 99 97.6 02/26/25 23:48 Nasal Cannula* 3 32 Intake/Output Intake and Output 02/27/25 07:00 Intake Total 1240 ml Balance 1240 ml Intake Oral 240 ml IV Total 1000 ml General Appearance: Alert, Oriented X3 Lungs: Clear to auscultation Cardiovascular: Regular rate, Normal S1, Normal S2 Medications Current Medications Medications Dose Ordered Sig/Earl Route Start Time Stop Time Status Last Admin Dose Admin Furosemide 40 mg DAILY IV 02/27/25 10:00 Carvedilol 3.125 mg Q12HR PO 02/26/25 22:00 02/27/25 10:32 3.125 MG Hydralazine HCl 10 mg Q6HP PRN IV 02/26/25 20:15 Aspirin 81 mg DAILY PO 02/27/25 10:00 02/27/25 10:31 81 MG Sodium Chloride 10 ml Q8HR IV 02/26/25 22:00 02/27/25 05:57 10 ML Acetaminophen/ Hydrocodone Bitart 1 tab Q4HP PRN PO 02/26/25 20:15 Ondansetron HCl 4 mg Q4HP PRN IV 02/26/25 20:15 Docusate Sodium 100 mg BIDPRN PRN PO 02/26/25 20:15 Acetaminophen 650 mg Q6HP PRN PO 02/26/25 20:15 Nitroglycerin 0.4 mg Q5MINP PRN SL 02/26/25 21:30 Morphine Sulfate 2 mg Q30M PRN IV 02/26/25 21:30 Laboratory Results Laboratory Tests 02/27/25 06:31 02/27/25 14:00 Chemistry Test 02/26/25 17:56 02/26/25 20:56 02/27/25 06:31 Albumin 4.3 g/dL (3.2-4.8) 3.7 g/dL (3.2-4.8) Calcium Level 9.0 mg/dL (8.7-10.4) 9.4 mg/dL (8.7-10.4) 9.2 mg/dL (8.7-10.4) Total Protein 6.8 g/dL (5.7-8.2) 6.0 g/dL (5.7-8.2) Cardiac Markers Test 02/26/25 17:56 B-Type Natriuretic Peptide 3645.84 pg/mL (0-100) LFT Test 02/26/25 17:56 02/27/25 06:31 Alanine Aminotransferase (ALT) 16 U/L (7-40) 16 U/L (7-40) Alkaline Phosphatase 54 U/L (46-116) 49 U/L (46-116) Aspartate Amino Transferase (AST) 48 U/L (13-40) H 46 U/L (13-40) H Total Bilirubin 1.3 mg/dL (0.2-1.0) H 1.0 mg/dL (0.2-1.0) Assessment/Plan Assessment/Plan Acute exacerbation of CHF (congestive heart failure) Hyponatremia Acute on chronic renal failure Elevated troponin I level Elevated bilirubin Anemia, unspecified Elevated lactic acid level Generalized weakness Na improving 110>112 Fluid restriction 1L a day IV lasix Consult nephrology Na levels q 4 hours US Kidneys Plan discussed with: Patient Date of Service: February 27, 2025 Billing Provider: SABRINA ROUSSEAU MD Common Visit Codes: [id number] INP/OBS CARE(HIGH) SABRINA ROUSSEAU MD February 27, 2025 16:11
--- NOTE | 2025-02-27 19:39 | DVHSR ---
APPROVED REPORT EXAM: Two-dimensional and M-mode echocardiogram with Doppler and color Doppler. Blood Pressure: 124/79 mmHg INDICATION CHF Exacerbation RISK FACTORS Height: 5' 10", Weight: 134 DIMENSIONS LVDd5.6 (3.8-5.7cm)LA (2D)5.0 (1.9-4.0cm)Aortic Root3.3 (2.0-3.7cm) LVDs5.4 (2.5-4.0cm)LA (MM) (1.9-4.0cm)Aortic Cusp Exc1.8 (1.5-2.0cm) EF (%) 10.0 (55-70%)Rt. Atrium4.1 (1.9-4.0cm)Asc. Aorta cm IVSd1.2 (0.7-1.1cm)RV (D) (1.8-2.4cm) PWd1.2 (0.7-1.1cm) Mitral Valve MitralMitral Stenosis E wave1.50m/sMV Mean GR.mmHg A wave0.70m/sMV Peak GR.mmHg E/A ratio2.12D MVAcm2 Aortic Valve Aortic ValveAortic Stenosis V10.50m/Rafal Mean GR.2mmHg V21.00m/Rafal Peak GR.4mmHg LVOT Diameter2.0 (1.8-2.4cm)Doppler AVA1.57cm2 AI P 1/2 Uilb186.52ms Pulmonic Valve V21.60m/s Tricuspid Valve TR Velocity3.50m/s [id number] Conclusion Technically a good study, Sinus Rhythm. Bi-atrail enlargement, LV enlargement Vaves are normal. LVEF is low, 10% with decreased RV function. Severe MR, moderate AI, mild PI and moderate TR. Pacing lead noted in RV. No PE or masses noted.
[2025-02-28] VITALS (8 sets, daily range): BP systolic 106–138; BP diastolic 52–78; PULSE 65–89; RESP 17–18; TEMP 97.4–98.2; O2SAT 90–100
[2025-02-28 08:18] LABS: Basophils # (auto) 0 10 ^3/uL (0-0.2); Basophils % (auto) 0.3 % (0.0-2.0); Eosinophils # (auto) 0 10 ^3/uL (0-0.8); Eosinophils % (auto) 0.5 % (0.0-7.0); Lymphocytes # (auto) 0.3 10 ^3/uL (0.4-5.4); Lymphocytes % (auto) 8.1 % (10.0-50.0); Neutrophils # (auto) 3.1 10 ^3/uL (1.6-8.6); Nucleated Red Blood Cells % 0.1 %
[2025-02-28 08:22] LABS: Hematocrit 28.7 % (41.0-53.0); Hemoglobin 10.3 g/dL (13.5-17.5); Mean Corpuscular Hemoglobin 39.7 pg (28.0-32.0); Mean Corpuscular Hgb Conc. 35.8 g/dL (32.0-36.0); Mean Corpuscular Volume 110.9 fL (80.0-100.0); Monocytes # (auto) 0.4 10 ^3/uL (0-1.3); Neutrophils % (auto) 81.1 % (37.0-80.0); Platelet Count (auto) 158 10^3/uL (140-450); Red Blood Cells 2.59 10^6/uL (4.5-5.90); Red Cell Distribution Width 13.9 % (11.8-14.3); White Blood Cell 3.8 10^3/uL (4.4-10.8)
[2025-02-28 08:33] LABS: Alanine Aminotransferase 15 U/L (7-40); Alkaline Phosphatase 46 U/L (46-116); Anion Gap 11 (5-15); BUN/Creatinine Ratio 13.8 (10.0-20.0); Blood Urea Nitrogen 22 mg/dL (9-23); Carbon Dioxide 24 mmol/L (20-31)
[2025-02-28 08:34] LABS: Albumin 3.4 g/dL (3.2-4.8)
[2025-02-28 08:35] LABS: Bilirubin, Total 0.9 mg/dL (0.2-1.0)
[2025-02-28 08:43] LABS: Aspartate Aminotransferase 46 U/L (13-40); Chloride 83 mmol/L (98-107); Glucose 65 mg/dL (74-106); Total Protein 5.6 g/dL (5.7-8.2)
[2025-02-28 08:44] LABS: Sodium 118 mmol/L (136-145)
[2025-02-28] MEDS: SODIUM CHL 3% 250 ML IV ONE (09:30)
[2025-02-28] MEDS: POTASSIUM EFFERVESENT TAB 25 MEQ PO ONE (13:29)
--- NOTE | 2025-02-28 13:47 | DVHPN2 ---
Progress Note Date Seen: February 28, 2025 Medical Necessity Reason Pt with a Central, PICC or Fol: Yes Subjective Patient reports: No new complaints Review of Systems: Deferred Objective vital signs Vital Sign Date Time Temp Pulse Resp B/P (MAP) Pulse Ox O2 Delivery O2 Flow Rate FiO2 02/28/25 13:15 98.1 69 18 130/78 (95) 100 98.1 02/27/25 20:00 Room Air* 0 21 Total Intake and Output 02/27/25 02/27/25 02/28/25 15:00 23:00 07:00 Intake Total 240 ml 300 ml 120 ml Output Total 1050 ml Balance 240 ml 300 ml -930 ml medications Current Medications Medications Dose Ordered Sig/Earl Route Start Time Stop Time Status Last Admin Dose Admin Furosemide 40 mg DAILY IV 02/27/25 10:00 02/28/25 09:28 40 MG Carvedilol 3.125 mg Q12HR PO 02/26/25 22:00 02/28/25 09:28 3.125 MG Hydralazine HCl 10 mg Q6HP PRN IV 02/26/25 20:15 Aspirin 81 mg DAILY PO 02/27/25 10:00 02/28/25 09:27 81 MG Sodium Chloride 10 ml Q8HR IV 02/26/25 22:00 02/28/25 05:55 10 ML Acetaminophen/ Hydrocodone Bitart 1 tab Q4HP PRN PO 02/26/25 20:15 Ondansetron HCl 4 mg Q4HP PRN IV 02/26/25 20:15 Docusate Sodium 100 mg BIDPRN PRN PO 02/26/25 20:15 Acetaminophen 650 mg Q6HP PRN PO 02/26/25 20:15 Nitroglycerin 0.4 mg Q5MINP PRN SL 02/26/25 21:30 Morphine Sulfate 2 mg Q30M PRN IV 02/26/25 21:30 laboratory and microbiology Laboratory Tests 02/28/25 08:03 Test 02/28/25 08:03 Range/Units Serum Glucose 65 L 74-106 mg/dL Problem List/Assessment/Plan Problem List/Assessment/Plan Severe hyponatremia symptomatic Acute kidney injury on Chronic kidney disease IIIb unknown baseline available Rule out Congestive heart failure Recommendations 3 percent saline as ordered Sodium mnitoring Avoid rapid correction no more than 6-8 mEq in 24 hours Continue diuretics We will follow closely sangeetha Plan discussed with: Patient My Orders My Orders Orders - MELINA ROBERTSON MD Procedure Category Date Status Time Insert Leon Catheter PIPPA 02/27/25 In Process 16:22 Sodium Chl 3% PHA 02/28/25 In Process 09:30 Sodium LAB 02/28/25 Logged 18:00 Sodium LAB 03/01/25 Verified 00:00 Sodium LAB 03/01/25 Verified 06:00 Sodium LAB 03/01/25 Verified 12:00 MELINA ROBERTSON MD February 28, 2025 13:47
--- NOTE | 2025-02-28 14:04 | DVHPN2 ---
Subjective in bed resting but having SOB Changes from previous H/P or p: No Changes Eyes: No Pain, No Vision change, No Conjunctivae inflammation, No Eyelid inflammation, No Other, No Redness ENT: No Ear pain, No Ear discharge, No Nose pain, No Nose discharge, No Nose congestion, No Mouth pain, No Mouth swelling, No Throat pain, No Throat swelling, No Other Cardiovascular: No Chest Pain, No Palpitations, No Orthopnea, No Paroxysmal Noc. Dyspnea, No Edema, No Lt Headedness, No Other Respiratory: No Cough, No Dry, No Shortness of breath, No SOB with excertion, No Wheezing, No Hemoptysis, No Pleuritic Pain, No Sputum, No Other Gastrointestinal: No Nausea, No Vomiting, No Abdominal Pain, No Diarrhea, No Constipation, No Melena, No Hematochezia, No Other Genitourinary: No Dysuria, No Frequency, No Incontinence, No Hematuria, No Retention, No Other Musculoskeletal: No other, No neck pain, No shoulder pain, No arm pain, No back pain, No hand pain, No leg pain, No foot pain Skin: No Rash, No Lesions, No Jaundice, No Bruising, No Other Objective Vitals Vital Signs Date Time Temp Pulse Resp B/P (MAP) Pulse Ox O2 Delivery O2 Flow Rate FiO2 02/28/25 13:15 98.1 69 18 130/78 (95) 100 98.1 02/27/25 20:00 Room Air* 0 21 Intake/Output Intake and Output 02/28/25 07:00 Intake Total 660 ml Output Total 1050 ml Balance -390 ml Intake Oral 660 ml Output Urine Total 1050 ml # Voids 2 General Appearance: Alert, Oriented X3 Lungs: Clear to auscultation Cardiovascular: Regular rate, Normal S1, Normal S2 Medications Current Medications Medications Dose Ordered Sig/Earl Route Start Time Stop Time Status Last Admin Dose Admin Furosemide 40 mg DAILY IV 02/27/25 10:00 02/28/25 09:28 40 MG Carvedilol 3.125 mg Q12HR PO 02/26/25 22:00 02/28/25 09:28 3.125 MG Hydralazine HCl 10 mg Q6HP PRN IV 02/26/25 20:15 Aspirin 81 mg DAILY PO 02/27/25 10:00 02/28/25 09:27 81 MG Sodium Chloride 10 ml Q8HR IV 02/26/25 22:00 02/28/25 05:55 10 ML Acetaminophen/ Hydrocodone Bitart 1 tab Q4HP PRN PO 02/26/25 20:15 Ondansetron HCl 4 mg Q4HP PRN IV 02/26/25 20:15 Docusate Sodium 100 mg BIDPRN PRN PO 02/26/25 20:15 Acetaminophen 650 mg Q6HP PRN PO 02/26/25 20:15 Nitroglycerin 0.4 mg Q5MINP PRN SL 02/26/25 21:30 Morphine Sulfate 2 mg Q30M PRN IV 02/26/25 21:30 Laboratory Results Laboratory Tests 02/28/25 08:03 Chemistry Test 02/28/25 08:03 Albumin 3.4 g/dL (3.2-4.8) Calcium Level 9.0 mg/dL (8.7-10.4) Total Protein 5.6 g/dL (5.7-8.2) L LFT Test 02/28/25 08:03 Alanine Aminotransferase (ALT) 15 U/L (7-40) Alkaline Phosphatase 46 U/L (46-116) Aspartate Amino Transferase (AST) 46 U/L (13-40) H Total Bilirubin 0.9 mg/dL (0.2-1.0) Assessment/Plan Assessment/Plan Acute exacerbation of CHF (congestive heart failure) Hyponatremia Acute on chronic renal failure Elevated troponin I level Elevated bilirubin Anemia, unspecified Elevated lactic acid level Generalized weakness Na improving 110>112>118 Fluid restriction 1L a day IV lasix Consult nephrology Na levels q 4 hours US Kidneys Plan discussed with: Patient Date of Service: February 28, 2025 Billing Provider: SABRINA ROUSSEAU MD Common Visit Codes: [id number] INP/OBS CARE(HIGH) SABRINA ROUSSEAU MD February 28, 2025 14:04
[2025-03-01] VITALS (9 sets, daily range): BP systolic 112–132; BP diastolic 63–94; PULSE 70–75; RESP 16–18; TEMP 97.5–98; O2SAT 96–100
[2025-03-01 06:03] LABS: Basophils # (auto) 0 10 ^3/uL (0-0.2); Eosinophils # (auto) 0 10 ^3/uL (0-0.8); Lymphocytes # (auto) 0.4 10 ^3/uL (0.4-5.4); Monocytes # (auto) 0.3 10 ^3/uL (0-1.3); Red Cell Distribution Width 13.9 % (11.8-14.3)
[2025-03-01 06:09] LABS: Basophils % (auto) 0.2 % (0.0-2.0); Eosinophils % (auto) 0.8 % (0.0-7.0); Hematocrit 29.9 % (41.0-53.0); Hemoglobin 10.9 g/dL (13.5-17.5); Lymphocytes % (auto) 11.4 % (10.0-50.0); Mean Corpuscular Hemoglobin 40.2 pg (28.0-32.0); Mean Corpuscular Volume 110.2 fL (80.0-100.0); Neutrophils # (auto) 2.8 10 ^3/uL (1.6-8.6); Neutrophils % (auto) 79.6 % (37.0-80.0); Nucleated Red Blood Cells % 0.2 %; Platelet Count (auto) 173 10^3/uL (140-450); Red Blood Cells 2.71 10^6/uL (4.5-5.90); White Blood Cell 3.5 10^3/uL (4.4-10.8)
[2025-03-01 06:26] LABS: Alanine Aminotransferase 16 U/L (7-40); Albumin 3.6 g/dL (3.2-4.8); Alkaline Phosphatase 50 U/L (46-116); Anion Gap 8 (5-15); BUN/Creatinine Ratio 13.1 (10.0-20.0); Blood Urea Nitrogen 21 mg/dL (9-23); Calcium 8.9 mg/dL (8.7-10.4); Carbon Dioxide 27 mmol/L (20-31); Glucose 81 mg/dL (74-106); Total Protein 5.8 g/dL (5.7-8.2)
[2025-03-01 06:36] LABS: Aspartate Aminotransferase 45 U/L (13-40); Chloride 87 mmol/L (98-107); Potassium 3.4 mmol/L (3.5-5.1); Sodium 122 mmol/L (136-145)
[2025-03-01 06:40] LABS: Mean Corpuscular Hgb Conc. 36.5 g/dL (32.0-36.0)
[2025-03-01 08:19] LABS: Bilirubin, Total 0.7 mg/dL (0.2-1.0)
[2025-03-01 11:21] LABS: Magnesium 1.3 mg/dL (1.6-2.6)
[2025-03-01 11:22] LABS: Phosphorus 3.3 mg/dL (2.4-5.1)
--- NOTE | 2025-03-01 12:28 | DVHPN2 ---
Progress Note Date Seen: March 01, 2025 Medical Necessity Reason Pt with a Central, PICC or Fol: No Subjective Patient reports: No new complaints Review of Systems: HEENT:Normal, CVS:Normal, RESPIRATORY:Normal, GI:Normal, :Normal, MSK:Normal, NEURO:Normal Objective vital signs Vital Sign Date Time Temp Pulse Resp B/P (MAP) Pulse Ox O2 Delivery O2 Flow Rate FiO2 03/01/25 09:35 72 132/69 03/01/25 08:30 97.6 18 98 97.6 03/01/25 08:00 Room Air* 0 21 Total Intake and Output 02/28/25 02/28/25 03/01/25 15:00 23:00 07:00 Intake Total 118 ml 320 ml 380 ml Output Total 2500 ml 1000 ml Balance 118 ml -2180 ml -620 ml medications Current Medications Medications Dose Ordered Sig/Earl Route Start Time Stop Time Status Last Admin Dose Admin Furosemide 40 mg DAILY IV 02/27/25 10:00 03/01/25 09:35 40 MG Carvedilol 3.125 mg Q12HR PO 02/26/25 22:00 03/01/25 09:35 3.125 MG Hydralazine HCl 10 mg Q6HP PRN IV 02/26/25 20:15 Aspirin 81 mg DAILY PO 02/27/25 10:00 03/01/25 09:34 81 MG Sodium Chloride 10 ml Q8HR IV 02/26/25 22:00 03/01/25 06:01 10 ML Acetaminophen/ Hydrocodone Bitart 1 tab Q4HP PRN PO 02/26/25 20:15 Ondansetron HCl 4 mg Q4HP PRN IV 02/26/25 20:15 Docusate Sodium 100 mg BIDPRN PRN PO 02/26/25 20:15 Acetaminophen 650 mg Q6HP PRN PO 02/26/25 20:15 Nitroglycerin 0.4 mg Q5MINP PRN SL 02/26/25 21:30 Morphine Sulfate 2 mg Q30M PRN IV 02/26/25 21:30 Potassium Chloride 100 ml @ 50 mls/hr Q2H IV 03/01/25 10:30 03/01/25 14:29 UNV Examination: GENERAL:Normal, HEENT:Normal, NECK:Normal, LUNGS:Normal, CVS:Normal, ABDOMEN:Normal, MSK:Normal, SKIN:Normal, NEURO:Normal, :Normal laboratory and microbiology Laboratory Tests 03/01/25 11:50 03/01/25 05:06 Test 03/01/25 05:06 Range/Units Serum Glucose 81 74-106 mg/dL Problem List/Assessment/Plan Problem List/Assessment/Plan #1 acute on chronic systolic heart failure: lasix iv #2 hyponatremia: improving #3 s/p pacer #4 h/o laryngeal cancer #5 anemia #6 htn #7 ckd stage 3 a advance care planning- full code- time spent 19 mins Plan discussed with: Patient My Orders My Orders Orders - CHRIS CHESTER MD Procedure Category Date Status Time * Cardiology Consult CONS 03/01/25 Transmitted 12:17 Potassium Effervesent PHA 03/01/25 Transmitted Tab (Klor-Con/Ef) 12:30 Magnesium Andrea PHA 03/01/25 Transmitted 13:00 Basic Metabolic Panel LAB 03/02/25 Verified 06:00 Magnesium LAB 03/02/25 Verified 05:00 Urinalysis LAB 03/01/25 Uncollected 12:17 Pt Request For Service PT 03/01/25 Transmitted 12:17 Date of Service: March 01, 2025 Billing Provider: CHRIS CHESTER MD Common Visit Codes: [id number] INP/OBS CARE(HIGH) Secondary Visit Codes: [id number] CARE PLAN 30 MINUTES CHRIS CHESTER MD March 01, 2025 12:28
--- NOTE | 2025-03-01 13:01 | DVHINCON2 ---
Date of service: March 01, 2025 History of Present Illness 74 yo M with NICM EF 30% in past, now down to 10%, hx of laryngeal cancer, ICD admitted for weakness. echo shows worsening chf. pt sees dr younger Past Medical History reviewed Family History: Patient reports no known family medical history. Allergies: Coded Allergies: NO KNOWN ALLERGIES (Unverified , 10/12/19) Home Meds Reported Medications Aspirin (Aspir-Low) 81 Mg Tab, 81 MG PO DAILY for 30 Days, MG 02/27/25 Losartan Potassium (Losartan Potassium) 25 Mg Tab, 25 MG PO DAILY for 30 Days, MG 10/12/19 Carvedilol (Carvedilol) 12.5 Mg Tab, 12.5 MG PO Q12HR for 30 Days, MG 10/12/19 Current Medications Current Medications Medications (Trade) Dose Ordered Sig/Earl Route PRN Reason Start Time Stop Time Status Last Admin Potassium Chloride 100 ml @ 50 mls/hr Q2H IV 03/01/25 10:30 03/01/25 14:29 Magnesium Sulfate/ Dextrose 100 ml @ 100 mls/hr Q1HR IV 03/01/25 13:00 03/01/25 14:59 Review of Systems 10 pt ros otherwise negative Vital Signs Vital Signs Date Time Temp Pulse Resp B/P (MAP) Pulse Ox O2 Delivery O2 Flow Rate FiO2 03/01/25 12:36 97.5 72 18 118/94 (102) 99 97.5 03/01/25 08:00 Room Air* 0 21 Physical Exam nad s1 s2 rrr ctab soft nt/nd no edema Labs/Diagnostic Data Labs Test 03/01/25 11:50 03/01/25 05:06 02/27/25 06:31 02/26/25 20:56 Range/Units Sodium Level 123 L 136-145 mmol/L White Blood Count 3.5 L 4.4-10.8 10^3/uL Red Blood Count 2.71 L 4.5-5.90 10^6/uL Hemoglobin 10.9 L 13.5-17.5 g/dL Hematocrit 29.9 L 41.0-53.0 % Mean Corpuscular Volume 110.2 H 80.0-100.0 fL Mean Corpuscular Hemoglobin 40.2 H 28.0-32.0 pg Mean Corpuscular Hemoglobin Concent 36.5 H 32.0-36.0 g/dL Red Cell Distribution Width 13.9 11.8-14.3 % Platelet Count 173 140-450 10^3/uL Mean Platelet Volume 7.5 6.9-10.8 fL Neutrophils (%) (Auto) 79.6 37.0-80.0 % Lymphocytes (%) (Auto) 11.4 10.0-50.0 % Monocytes (%) (Auto) 8.0 0.0-12.0 % Eosinophils (%) (Auto) 0.8 0.0-7.0 % Basophils (%) (Auto) 0.2 0.0-2.0 % Neutrophils # (Auto) 2.8 1.6-8.6 10 ^3/uL Lymphocytes # (Auto) 0.4 0.4-5.4 10 ^3/uL Monocytes # (Auto) 0.3 0-1.3 10 ^3/uL Eosinophils # (Auto) 0 0-0.8 10 ^3/uL Basophils # (Auto) 0 0-0.2 10 ^3/uL Nucleated Red Blood Cells 0.2 % Potassium Level 3.4 L 3.5-5.1 mmol/L Chloride Level 87 L 98-107 mmol/L Carbon Dioxide Level 27 20-31 mmol/L Anion Gap 8 5-15 Blood Urea Nitrogen 21 9-23 mg/dL Creatinine 1.60 H 0.700-1.30 mg/dL Glomerular Filtration Rate Calc 44 >90 mL/min BUN/Creatinine Ratio 13.1 10.0-20.0 Serum Glucose 81 74-106 mg/dL Calcium Level 8.9 8.7-10.4 mg/dL Phosphorus Level 3.3 2.4-5.1 mg/dL Magnesium Level 1.3 L 1.6-2.6 mg/dL Total Bilirubin 0.7 0.2-1.0 mg/dL Aspartate Amino Transferase (AST) 45 H 13-40 U/L Alanine Aminotransferase (ALT) 16 7-40 U/L Alkaline Phosphatase 50 46-116 U/L Total Protein 5.8 5.7-8.2 g/dL Albumin 3.6 3.2-4.8 g/dL Vitamin D 25-Hydroxy 41.5 30.0-100 ng/mL Serum Osmolality 238 L 278-298 mOsm/kg Uric Acid 7.5 3.7-9.2 mg/dL Troponin I High Sensitivity 79 *H </=54 ng/L Test 02/26/25 19:46 02/26/25 18:32 02/26/25 17:56 Range/Units Lactic Acid Level 2.0 0.4-2.0 mmol/L POC Glucose 94 70-106 mg/dl Platelet Estimate Adequate Macrocytosis Slight B-Type Natriuretic Peptide 3645.84 0-100 pg/mL Assessment severe class III systolic and diastolic acute on chronic HF ckd hx of ICD NICM hyponatremia larylngeal cancer severe hyponatremai Plan/Recommendation [facility] in 2019 was - likely NICM with low dose trop 2/2 to type 2 nstemi severe hf very low NA needs advanced HF therapy, recommend BB, entresto if feasible, jardiance for HF avoid over diuresis but bnp is very high , needs some diuretic Plan discussed with: Patient ADIA SOTO MD March 01, 2025 13:01
[2025-03-01] MEDS: POTASSIUM EFFERVESENT TAB 25 MEQ PO ONE (13:30)
[2025-03-01] MEDS: POTASSIUM CHL 20MEQ/100ML 100 ML IV SCH (13:41)
[2025-03-01 13:55] LABS: Urine Bacteria None Seen /hpf (None Seen)
[2025-03-01 14:01] LABS: Urine Bacteria None Seen /hpf (None Seen)
[2025-03-01 14:11] LABS: Sodium Urine 79 mmol/L (40-220)
[2025-03-01 14:13] LABS: Urine Blood 3+ /uL (Negative); Urine Clarity Clear (Clear); Urine Color Light-Yellow (Yellow); Urine Protein, UAD Negative (Negative); Urine Specific Gravity 1.006 (1.001-1.035); Urine Squamous Epithelial Cell FEW /hpf (<5); Urine Urobilinogen 2 mg/dL (Negative); Urine WBC 4 /HPF (0-3)
[2025-03-01 14:14] LABS: Urine Blood 3+ /uL (Negative); Urine Clarity Clear (Clear); Urine Color Light-Yellow (Yellow); Urine Protein, UAD Negative (Negative); Urine Specific Gravity 1.006 (1.001-1.035); Urine Squamous Epithelial Cell None Seen /hpf (<5); Urine Urobilinogen 2 mg/dL (Negative); Urine WBC 14 /HPF (0-3)
[2025-03-01 14:18] LABS: Creatinine, Urine 25.91 mg/dL (30.0-125.0); Urine Protein/Creatinine Ratio 0.23
[2025-03-01 14:19] LABS: Protein, Urine < 6.0 mg/dL (1-14)
--- NOTE | 2025-03-01 14:49 | DVHPN2 ---
Progress Note Date Seen: March 01, 2025 Medical Necessity Reason Pt with a Central, PICC or Fol: No Subjective Patient reports: No new complaints Other Systems: Patient seen and examined by myself today in rounds Objective vital signs Vital Sign Date Time Temp Pulse Resp B/P (MAP) Pulse Ox O2 Delivery O2 Flow Rate FiO2 03/01/25 12:36 97.5 72 18 118/94 (102) 99 97.5 03/01/25 08:00 Room Air* 0 21 Total Intake and Output 02/28/25 02/28/25 03/01/25 15:00 23:00 07:00 Intake Total 118 ml 320 ml 380 ml Output Total 2500 ml 1000 ml Balance 118 ml -2180 ml -620 ml medications Current Medications Medications Dose Ordered Sig/Earl Route Start Time Stop Time Status Last Admin Dose Admin Furosemide 40 mg DAILY IV 02/27/25 10:00 03/01/25 09:35 40 MG Carvedilol 3.125 mg Q12HR PO 02/26/25 22:00 03/01/25 09:35 3.125 MG Hydralazine HCl 10 mg Q6HP PRN IV 02/26/25 20:15 Aspirin 81 mg DAILY PO 02/27/25 10:00 03/01/25 09:34 81 MG Sodium Chloride 10 ml Q8HR IV 02/26/25 22:00 03/01/25 06:01 10 ML Acetaminophen/ Hydrocodone Bitart 1 tab Q4HP PRN PO 02/26/25 20:15 Ondansetron HCl 4 mg Q4HP PRN IV 02/26/25 20:15 Docusate Sodium 100 mg BIDPRN PRN PO 02/26/25 20:15 Acetaminophen 650 mg Q6HP PRN PO 02/26/25 20:15 Nitroglycerin 0.4 mg Q5MINP PRN SL 02/26/25 21:30 Morphine Sulfate 2 mg Q30M PRN IV 02/26/25 21:30 Magnesium Sulfate/ Dextrose 100 ml @ 100 mls/hr Q1HR IV 03/01/25 13:00 03/01/25 14:59 Sacubitril/ Valsartan 1 tab BID PO 03/01/25 22:00 UNV Examination: LUNGS:Normal, LUNGS:Abnormal, MSK:Normal laboratory and microbiology Laboratory Tests 03/01/25 11:50 03/01/25 05:06 Test 03/01/25 05:06 Range/Units Serum Glucose 81 74-106 mg/dL Problem List/Assessment/Plan Problem List/Assessment/Plan Acute kidney injury on Chronic kidney disease IIIb unknown baseline available CHF exacerbation Hyponatremia due to excess H2O intake Hypomagnesemia Hypokalemia Anemia of CKD REC: I agree with diouresis Fluids restriction KCl replacement Magnseium sulfate IVPB @ill continue to follow Plan discussed with: Patient My Orders My Orders Orders - ASHWIN ZULETA MD Procedure Category Date Status Time Osmolality Urine LAB 03/01/25 In Process 10:21 Maintain Fluid PIPPA 03/01/25 In Process Restrictions 10:23 ASHWIN ZULETA MD March 01, 2025 14:49
[2025-03-01] MEDS: MAGNESIUM SULFATE 1GM/100ML 100 ML IV SCH ×2 (18:50→20:45)
[2025-03-01] MEDS: HYDROcodone-ACET 5/325MG TAB PO PRN (20:45)
[2025-03-01] MEDS: SACUBITRIL-VALSARTAN 24mg/26mg TAB PO SCH (22:25)
[2025-03-02] VITALS (9 sets, daily range): BP systolic 106–140; BP diastolic 57–83; PULSE 63–87; RESP 16–18; TEMP 97.5–97.9; O2SAT 95–100
[2025-03-02 06:26] LABS: Anion Gap 5 (5-15)
[2025-03-02 06:27] LABS: Calcium 8.8 mg/dL (8.7-10.4)
[2025-03-02 06:32] LABS: BUN/Creatinine Ratio 9.6 (10.0-20.0); Blood Urea Nitrogen 15 mg/dL (9-23); Glucose 91 mg/dL (74-106); Magnesium 1.9 mg/dL (1.6-2.6)
[2025-03-02 06:33] LABS: Carbon Dioxide 31 mmol/L (20-31); Chloride 87 mmol/L (98-107); Potassium 3.4 mmol/L (3.5-5.1); Sodium 123 mmol/L (136-145)
--- NOTE | 2025-03-02 10:36 | DVHPN2 ---
Progress Note Date Seen: March 02, 2025 Medical Necessity Reason Pt with a Central, PICC or Fol: No Subjective Other Systems: Patient seen and examined by myself today in follow-up Objective vital signs Vital Sign Date Time Temp Pulse Resp B/P (MAP) Pulse Ox O2 Delivery O2 Flow Rate FiO2 03/02/25 05:00 97.7 80 18 140/83 (102) 100 97.7 03/01/25 20:18 Room Air* 0 21 Total Intake and Output 03/01/25 03/01/25 03/02/25 15:00 23:00 07:00 Intake Total 100 ml 425 ml 300 ml Output Total 1200 ml 400 ml Balance 100 ml -775 ml -100 ml medications Current Medications Medications Dose Ordered Sig/Earl Route Start Time Stop Time Status Last Admin Dose Admin Furosemide 40 mg DAILY IV 02/27/25 10:00 03/01/25 09:35 40 MG Carvedilol 3.125 mg Q12HR PO 02/26/25 22:00 03/01/25 20:45 3.125 MG Hydralazine HCl 10 mg Q6HP PRN IV 02/26/25 20:15 Aspirin 81 mg DAILY PO 02/27/25 10:00 03/01/25 09:34 81 MG Sodium Chloride 10 ml Q8HR IV 02/26/25 22:00 03/02/25 05:21 10 ML Acetaminophen/ Hydrocodone Bitart 1 tab Q4HP PRN PO 02/26/25 20:15 03/01/25 20:45 1 TAB Ondansetron HCl 4 mg Q4HP PRN IV 02/26/25 20:15 Docusate Sodium 100 mg BIDPRN PRN PO 02/26/25 20:15 Acetaminophen 650 mg Q6HP PRN PO 02/26/25 20:15 Nitroglycerin 0.4 mg Q5MINP PRN SL 02/26/25 21:30 Morphine Sulfate 2 mg Q30M PRN IV 02/26/25 21:30 Sacubitril/ Valsartan 1 tab BID PO 03/01/25 22:00 03/01/25 22:25 1 TAB laboratory and microbiology Laboratory Tests 03/02/25 05:13 03/01/25 05:06 Test 03/02/25 05:13 Range/Units Serum Glucose 91 74-106 mg/dL Problem List/Assessment/Plan Problem List/Assessment/Plan Acute kidney injury on Chronic kidney disease IIIb unknown baseline available CHF exacerbation Hyponatremia due to excess H2O intake and water retention Hypomagnesemia Hypokalemia Laryngeal carcinoma Anemia of CKD REC: Kidney function stable Chronic Kidney Disease stage 3 B Increased urine output Strict I&O Fluids restriction Agree with diuresis KCl replacement Magnesium sulfate IVPB Well continue to follow Plan discussed with: Patient ASHWIN ZULETA MD March 02, 2025 10:36
--- NOTE | 2025-03-02 11:15 | DVHPN2 ---
Progress Note Date Seen: March 02, 2025 Medical Necessity Reason Pt with a Central, PICC or Fol: No Subjective Patient reports: No new complaints Review of Systems: HEENT:Normal, CVS:Normal, RESPIRATORY:Normal, GI:Normal, :Normal, MSK:Normal, NEURO:Normal Objective vital signs Vital Sign Date Time Temp Pulse Resp B/P (MAP) Pulse Ox O2 Delivery O2 Flow Rate FiO2 03/02/25 10:38 74 110/69 03/02/25 09:00 97.8 18 100 97.8 03/02/25 07:50 Room Air* 0 21 Total Intake and Output 03/01/25 03/01/25 03/02/25 15:00 23:00 07:00 Intake Total 100 ml 425 ml 300 ml Output Total 1200 ml 400 ml Balance 100 ml -775 ml -100 ml medications Current Medications Medications Dose Ordered Sig/Earl Route Start Time Stop Time Status Last Admin Dose Admin Furosemide 40 mg DAILY IV 02/27/25 10:00 03/02/25 10:38 40 MG Carvedilol 3.125 mg Q12HR PO 02/26/25 22:00 03/02/25 10:38 3.125 MG Hydralazine HCl 10 mg Q6HP PRN IV 02/26/25 20:15 Aspirin 81 mg DAILY PO 02/27/25 10:00 03/02/25 10:37 81 MG Sodium Chloride 10 ml Q8HR IV 02/26/25 22:00 03/02/25 05:21 10 ML Acetaminophen/ Hydrocodone Bitart 1 tab Q4HP PRN PO 02/26/25 20:15 03/01/25 20:45 1 TAB Ondansetron HCl 4 mg Q4HP PRN IV 02/26/25 20:15 Docusate Sodium 100 mg BIDPRN PRN PO 02/26/25 20:15 Acetaminophen 650 mg Q6HP PRN PO 02/26/25 20:15 Nitroglycerin 0.4 mg Q5MINP PRN SL 02/26/25 21:30 Morphine Sulfate 2 mg Q30M PRN IV 02/26/25 21:30 Sacubitril/ Valsartan 1 tab BID PO 03/01/25 22:00 03/01/25 22:25 1 TAB Examination: GENERAL:Normal, HEENT:Normal, NECK:Normal, LUNGS:Normal, CVS:Normal, ABDOMEN:Normal, MSK:Normal, SKIN:Normal, NEURO:Normal, :Normal laboratory and microbiology Laboratory Tests 03/02/25 05:13 03/01/25 05:06 Test 03/02/25 05:13 Range/Units Serum Glucose 91 74-106 mg/dL Problem List/Assessment/Plan Problem List/Assessment/Plan #1 acute on chronic systolic heart failure: lasix iv #2 hyponatremia: improving, free water restriction #3 s/p pacer #4 h/o laryngeal cancer #5 anemia #6 htn #7 ckd stage 3 a advance care planning- full code- time spent 19 mins Plan discussed with: Patient My Orders My Orders Orders - CHRIS CHESTER MD Procedure Category Date Status Time * Cardiology Consult CONS 03/01/25 Transmitted 12:17 Pt Request For Service PT 03/01/25 Logged 12:17 Maintain Fluid PIPPA 03/01/25 In Process Restrictions 12:25 Date of Service: March 02, 2025 Billing Provider: CHRIS CHESTER MD Common Visit Codes: [id number] INP/OBS CARE(HIGH) CHRIS CHESTER MD March 02, 2025 11:15
[2025-03-02] MEDS: POTASSIUM EFFERVESENT TAB 25 MEQ PO ONE (11:41)
[2025-03-02] MEDS: MAGNESIUM SULFATE 1GM/100ML 100 ML IV SCH (11:42)
--- NOTE | 2025-03-02 16:56 | DVHPN2 ---
Consult Progress Note Subjective Other Systems: Patient denies any cardiac symptoms at time of assessment Objective vital signs Vital Sign Date Time Temp Pulse Resp B/P (MAP) Pulse Ox O2 Delivery O2 Flow Rate FiO2 03/02/25 13:00 97.5 63 18 107/57 (74) 95 97.5 03/02/25 07:50 Room Air* 0 21 Total Intake and Output 03/01/25 03/01/25 03/02/25 15:00 23:00 07:00 Intake Total 100 ml 425 ml 300 ml Output Total 1200 ml 400 ml Balance 100 ml -775 ml -100 ml medications Current Medications Medications Dose Ordered Sig/Earl Route Start Time Stop Time Status Last Admin Dose Admin Furosemide 40 mg DAILY IV 02/27/25 10:00 03/02/25 10:38 40 MG Carvedilol 3.125 mg Q12HR PO 02/26/25 22:00 03/02/25 10:38 3.125 MG Hydralazine HCl 10 mg Q6HP PRN IV 02/26/25 20:15 Aspirin 81 mg DAILY PO 02/27/25 10:00 03/02/25 10:37 81 MG Sodium Chloride 10 ml Q8HR IV 02/26/25 22:00 03/02/25 14:04 10 ML Acetaminophen/ Hydrocodone Bitart 1 tab Q4HP PRN PO 02/26/25 20:15 03/01/25 20:45 1 TAB Ondansetron HCl 4 mg Q4HP PRN IV 02/26/25 20:15 Docusate Sodium 100 mg BIDPRN PRN PO 02/26/25 20:15 Acetaminophen 650 mg Q6HP PRN PO 02/26/25 20:15 Nitroglycerin 0.4 mg Q5MINP PRN SL 02/26/25 21:30 Morphine Sulfate 2 mg Q30M PRN IV 02/26/25 21:30 Sacubitril/ Valsartan 1 tab BID PO 03/01/25 22:00 03/02/25 11:41 1 TAB Examination: GENERAL:Normal, LUNGS:Normal, CVS:Normal, NEURO:Normal laboratory and microbiology Laboratory Tests 03/02/25 05:13 03/01/25 05:06 Test 03/02/25 05:13 Range/Units Serum Glucose 91 74-106 mg/dL Problem List/Assessment/Plan Problem List/Assessment/Plan Acute on chronic HFrEF, NYHA class III Nonischemic cardiomyopathy Presence of permanent pacemaker ([place], [place]) Hypertension Severe mitral regurgitation Severe hyponatremia History of laryngeal cancer status post chemo and radiation Plan/recommendations (Dr. Moreno): Case discussed with . Transthoracic echocardiogram reveals EF of 10%. Patient underwent a coronary angiogram in 2019 which revealed normal coronaries. Continue with guideline directed medical therapy for CHF as renal function permits. Diuresis as tolerated, monitor sodium levels. Patient has a permanent pacemaker in place. Given that the patient has an EF less than 35% and LBBB on twelve lead electrocardiogram, [employer] should be considered. Unable to accurately assess QRS duration given underlying paced rhythm. We will consult EP rug measurer Dr. Dejesus for possible ICD vs [employer]ER-D. Thank you for allowing us to care for this patient. Please call with any questions or concerns. This medical document was created using an electronic medical record system with voice recognition software and computerized dictation system. Although this document has been carefully reviewed, there might still be some phonetic and typographical errors. Occasional wrong-word or ``sound-alike substitutions may have occurred due to the inherent limitations of voice recognition software. These areas are purely typographical due to imperfections of the software programs and do not reflect any compromise in the patient's medical care. Please read the chart carefully and recognize, using context, where these substitutions have occurred. Plan discussed with: Patient Dietary Evaluation Review Comments: 1. Continue current POC 2. Consider Ensure enlive 240ml BID if PO intake <50% Expected Outcomes/Goals: To meet >75% estimated needs Fu 3-5 days Date of Service: March 02, 2025 Billing Provider: THUY CHAIREZ Common Visit Codes: [id number] INP/OBS CARE(HIGH) THUY CHAIREZ March 02, 2025 16:56
[2025-03-03] VITALS (7 sets, daily range): BP systolic 95–128; BP diastolic 58–79; PULSE 67–73; RESP 16–18; TEMP 97.7–98.1; O2SAT 92–96
[2025-03-03 06:33] LABS: Potassium 3.9 mmol/L (3.5-5.1)
[2025-03-03 06:34] LABS: Anion Gap 5 (5-15)
[2025-03-03 06:39] LABS: BUN/Creatinine Ratio 7.6 (10.0-20.0); Blood Urea Nitrogen 12 mg/dL (9-23); Glucose 89 mg/dL (74-106)
[2025-03-03 06:48] LABS: Sodium 124 mmol/L (136-145)
[2025-03-03 06:49] LABS: Calcium 8.4 mg/dL (8.7-10.4); Carbon Dioxide 33 mmol/L (20-31); Chloride 86 mmol/L (98-107)
--- NOTE | 2025-03-03 11:32 | DVHPN2 ---
Progress Note Date Seen: March 03, 2025 Medical Necessity Reason Pt with a Central, PICC or Fol: No Subjective Patient reports: No new complaints Other Systems: Patient seen and examined by myself today in follow-up Objective vital signs Vital Sign Date Time Temp Pulse Resp B/P (MAP) Pulse Ox O2 Delivery O2 Flow Rate FiO2 03/03/25 11:17 66 122/73 03/03/25 09:00 97.7 18 92 97.7 03/03/25 08:00 Room Air* 0 21 Total Intake and Output 03/02/25 03/02/25 03/03/25 15:00 23:00 07:00 Intake Total 160 ml 300 ml 600 ml Output Total 1200 ml 400 ml Balance 160 ml -900 ml 200 ml medications Current Medications Medications Dose Ordered Sig/Earl Route Start Time Stop Time Status Last Admin Dose Admin Furosemide 40 mg DAILY IV 02/27/25 10:00 03/03/25 10:16 40 MG Carvedilol 3.125 mg Q12HR PO 02/26/25 22:00 03/03/25 10:17 3.125 MG Hydralazine HCl 10 mg Q6HP PRN IV 02/26/25 20:15 Aspirin 81 mg DAILY PO 02/27/25 10:00 03/03/25 10:17 81 MG Sodium Chloride 10 ml Q8HR IV 02/26/25 22:00 03/03/25 05:13 10 ML Acetaminophen/ Hydrocodone Bitart 1 tab Q4HP PRN PO 02/26/25 20:15 03/02/25 21:22 1 TAB Ondansetron HCl 4 mg Q4HP PRN IV 02/26/25 20:15 Docusate Sodium 100 mg BIDPRN PRN PO 02/26/25 20:15 Acetaminophen 650 mg Q6HP PRN PO 02/26/25 20:15 Nitroglycerin 0.4 mg Q5MINP PRN SL 02/26/25 21:30 Morphine Sulfate 2 mg Q30M PRN IV 02/26/25 21:30 Sacubitril/ Valsartan 1 tab BID PO 03/01/25 22:00 03/03/25 10:16 1 TAB Examination: LUNGS:Normal, CVS:Normal, MSK:Normal laboratory and microbiology Laboratory Tests 03/03/25 05:18 03/01/25 05:06 Test 03/03/25 05:18 Range/Units Serum Glucose 89 74-106 mg/dL Problem List/Assessment/Plan Problem List/Assessment/Plan Acute kidney injury on Chronic kidney disease IIIA unknown baseline available CHF exacerbation Hyponatremia due to excess H2O intake and hypothyroidism Hypomagnesemia Hypokalemia Hypothyroidism Laryngeal carcinoma Anemia of CKD REC: Kidney function slightly improving Increased urine output Hyponatremia appropriately on slowly is improving Strict I&O Fluids restrictions Agree with diuresis KCl replacement Magnesium sulfate IVPB Levothyroxine replacement Well continue to follow Plan discussed with: Patient Dietary Evaluation Review Comments: 1. Continue current POC 2. Consider Ensure enlive 240ml BID if PO intake <50% Expected Outcomes/Goals: To meet >75% estimated needs Fu 3-5 days ASHWIN ZULETA MD March 03, 2025 11:32
--- NOTE | 2025-03-03 11:49 | DVHPN2 ---
Progress Note Date Seen: March 03, 2025 Medical Necessity Reason Pt with a Central, PICC or Fol: No Subjective Patient reports: No new complaints Review of Systems: HEENT:Normal, CVS:Normal, RESPIRATORY:Normal, GI:Normal, :Normal, MSK:Normal, NEURO:Normal Objective vital signs Vital Sign Date Time Temp Pulse Resp B/P (MAP) Pulse Ox O2 Delivery O2 Flow Rate FiO2 03/03/25 11:17 66 122/73 03/03/25 09:00 97.7 18 92 97.7 03/03/25 08:00 Room Air* 0 21 Total Intake and Output 03/02/25 03/02/25 03/03/25 15:00 23:00 07:00 Intake Total 160 ml 300 ml 600 ml Output Total 1200 ml 400 ml Balance 160 ml -900 ml 200 ml medications Current Medications Medications Dose Ordered Sig/Earl Route Start Time Stop Time Status Last Admin Dose Admin Furosemide 40 mg DAILY IV 02/27/25 10:00 03/03/25 10:16 40 MG Carvedilol 3.125 mg Q12HR PO 02/26/25 22:00 03/03/25 10:17 3.125 MG Hydralazine HCl 10 mg Q6HP PRN IV 02/26/25 20:15 Aspirin 81 mg DAILY PO 02/27/25 10:00 03/03/25 10:17 81 MG Sodium Chloride 10 ml Q8HR IV 02/26/25 22:00 03/03/25 05:13 10 ML Acetaminophen/ Hydrocodone Bitart 1 tab Q4HP PRN PO 02/26/25 20:15 03/02/25 21:22 1 TAB Ondansetron HCl 4 mg Q4HP PRN IV 02/26/25 20:15 Docusate Sodium 100 mg BIDPRN PRN PO 02/26/25 20:15 Acetaminophen 650 mg Q6HP PRN PO 02/26/25 20:15 Nitroglycerin 0.4 mg Q5MINP PRN SL 02/26/25 21:30 Morphine Sulfate 2 mg Q30M PRN IV 02/26/25 21:30 Sacubitril/ Valsartan 1 tab BID PO 03/01/25 22:00 03/03/25 10:16 1 TAB Examination: GENERAL:Normal, HEENT:Normal, NECK:Normal, LUNGS:Normal, CVS:Normal, ABDOMEN:Normal, MSK:Normal, SKIN:Normal, NEURO:Normal, :Normal laboratory and microbiology Laboratory Tests 03/03/25 05:18 03/01/25 05:06 Test 03/03/25 05:18 Range/Units Serum Glucose 89 74-106 mg/dL Problem List/Assessment/Plan Problem List/Assessment/Plan #1 acute on chronic systolic heart failure: lasix iv , dw dr Ferguson #2 hyponatremia: improving, free water restriction #3 s/p pacer #4 h/o laryngeal cancer #5 anemia #6 htn #7 ckd stage 3 a #8 uncontrolled hypothyroidism: iv levothyroxine advance care planning- full code- time spent 19 mins Plan discussed with: Patient My Orders My Orders Orders - CHRIS CHESTER MD Procedure Category Date Status Time Dietary NOTICE 03/02/25 Transmitted Recommendations 12:09 Dietary Evaluation Review Comments: 1. Continue current POC 2. Consider Ensure enlive 240ml BID if PO intake <50% Expected Outcomes/Goals: To meet >75% estimated needs Fu 3-5 days Date of Service: March 03, 2025 Billing Provider: CHRIS CHESTER MD Common Visit Codes: [id number] INP/OBS CARE(HIGH) CHRIS CHESTER MD March 03, 2025 11:49
[2025-03-03] MEDS: LEVOTHYROXINE SODIUM 100 MCG/5 ML INJ IV ONE (12:03)
--- NOTE | 2025-03-03 14:12 | DVHINCON2 ---
Date of service: March 03, 2025 Referring Physician Kathia Barrios NP Reason for Consultation Evaluation for Potential ICD Upgrade History of Present Illness This is a 74-year old male known outside to Dr. Moreno who initially presented 02/26/2025 with reported generalized weakness subsequently admitted with severe hyponatremia (improving) questionable to acute on chronic systolic heart failure which both Nephrology and Interventional Cardiology services were involved for further evaluation/management. Patient had furthermore been found to have superimposing hypothyroidism for which the patient was subsequently initiated on Levothyroxine therapy as managed by primary team. Of note, the patient does have an underlying history of non-ischemic cardiomyopathy that was discovered back in September of 2019. At that time patient had presented with STEMI which subsequent cardiac catheterization (10/12/2019) had revealed no significant coronary artery disease with an LVEF of 30% as per ventriculogram. Echocardiogram (10/12/2019) at that time had revealed an LVEF of 30-35%. Upon review of records, serial Echocardiograms beyond point of admission back in September of 2019 are found co nsistent with a chronically reduced LV function (< 35%) which LV function itself appears to have progressively declined over the course of the past few years despite GDMT as underlying medical conditions have permitted. At present, 12- lead electrocardiogram had revealed a sinus rhythm with ventricular pacing at 92bpm, wide QRS of 190 milliseconds. Repeat Echocardiogram (02/27/2025) has revealed a severely reduced LVEF of 10%, severe mitral insufficiency, moderate aortic insufficiency, with an RVSP of 60mmHg consistent with underlying moderate degree pulmonary hypertension (likely type II). Of note, patient is status post [employer] dual-chamber permanent pacemaker implantation in [place] (03/03/2018). Device interrogation at present reveals patient himself is pacer dependent with > 99% ventricular pacing. As the patient is known to have an underlying history of non-ischemic cardiomyopathy with chronic/progressive decline in LV function (10% at present) despite GDMT as underlying medical conditions have permitted, Electrophysiology services were involved by Interventional Cardiology request to evaluate the patient for potential AICD upgrade. Past Medical History Past medical history includes chronic systolic heart failure, non-ischemic car diomyopathy, status post [employer] dual-chamber permanent pacemaker implantation (03/03/2018 in [place]) chronic kidney disease, hypertension, and previous history of laryngeal cancer status post chemotherapy/radiation Cardiac Catheterization: (10/12/2019) revealed IMPRESSION: Elevated left ventricular end-diastolic pressure at rest, decreased left ventricular ejection fraction, no significant coronary artery disease. Ventriculography in the LEONARD projection shoes an EF of 30% with a global hypokinesis. Enlarged left ventricle. Echocardiogram: (10/12/2019) revealed Technically good study. Sinus rhythm. Left ventricular enlargement with concentric LVH. Valves appear to be structurally normal with mild mitral annular calcification. Left ventricular systolic function is diminished. EF is about 30 to 35% with mild to moderate global hypokinesis. Predominant anterior hypokinesis. Moderate tricuspid regurgitation with moderate mitral insufficiency. RVSP of 34 mmHg. No pericardial effusion masses or vegetations. Echocardiogram: (09/02/2020) revealed Technically difficult study difficult acoustic windows. Sinus rhythm. Left ventricular enlargement with concentric LVH. Valves appear to be structurally normal. Mild mitral annular calcification. Left ventricular systolic function is diminished. There is anterior akinesis with septal hypokinesis. Overall estimated ejection fraction is approximately 25%. Right ventricular function is better. Doppler reveals mild tricuspid and mitral insufficiency. RVSP of 25 to 30 mmHg. No pericardial effusion masses or vegetations. Echocardiogram: (07/09/2024) revealed Technically good study. Sinus rhythm. Left ventricular enlargement. Left atrial enlargement. Valves appear to be structurally normal. Mild thickening of the aortic and mitral leaflets. Left ventricular function is diminished. EF is about 20% with severe global hypokinesis. Normal RV function. Moderate tricuspid and mitral insufficiency. Moderate aortic insufficiency. No pericardial effusion masses or vegetations. Echocardiogram: (02/27/2025) revealed Technically a good study, Sinus Rhythm. Bi- atrail enlargement, LV enlargement, Valves are normal. LVEF is low, 10% with decreased RV function. Severe MR, moderate AI, mild PI and moderate TR. Pacing lead noted in RV. No PE or masses noted. RVSP of 60mmHg Past Surgical History Reviewed Family History: Patient reports no known family medical history. Allergies: Coded Allergies: NO KNOWN ALLERGIES (Unverified , 10/12/19) Home Meds Reported Medications Aspirin (Aspir-Low) 81 Mg Tab, 81 MG PO DAILY for 30 Days, MG 02/27/25 Losartan Potassium (Losartan Potassium) 25 Mg Tab, 25 MG PO DAILY for 30 Days, MG 10/12/19 Carvedilol (Carvedilol) 12.5 Mg Tab, 12.5 MG PO Q12HR for 30 Days, MG 10/12/19 Current Medications Current Medications Medications (Trade) Dose Ordered Sig/Earl Route PRN Reason Start Time Stop Time Status Last Admin Levothyroxine Sodium (Synthroid Injection) 100 mcg DAILY IV 03/04/25 10:00 Review of Systems A 14-point review of systems is negative unless otherwise noted above Vital Signs Vital Signs Date Time Temp Pulse Resp B/P (MAP) Pulse Ox O2 Delivery O2 Flow Rate FiO2 03/03/25 11:17 66 122/73 03/03/25 09:00 97.7 18 92 97.7 03/03/25 08:00 Room Air* 0 21 Physical Exam Heart: S1 and S2 regular. The patient is in sinus rhythm. Lungs: Scattered rhonchi. Abdomen: Benign. Extremities: Distal pulses palpable, 2+. Mild peripheral edema present Labs/Diagnostic Data Labs Test 03/03/25 05:18 03/02/25 05:13 03/01/25 13:49 03/01/25 05:06 Range/Units Sodium Level 124 L 136-145 mmol/L Potassium Level 3.9 3.5-5.1 mmol/L Chloride Level 86 L 98-107 mmol/L Carbon Dioxide Level 33 H 20-31 mmol/L Anion Gap 5 5-15 Blood Urea Nitrogen 12 9-23 mg/dL Creatinine 1.57 H 0.700-1.30 mg/dL Glomerular Filtration Rate Calc 45 >90 mL/min BUN/Creatinine Ratio 7.6 L 10.0-20.0 Serum Glucose 89 74-106 mg/dL Calcium Level 8.4 L 8.7-10.4 mg/dL Magnesium Level 2.0 1.6-2.6 mg/dL B-Type Natriuretic Peptide 1691.40 0-100 pg/mL Vitamin B12 Level 454 211-911 pg/mL Thyroid Stimulating Hormone (TSH) 68.84 H 0.55-4.78 uIU/mL Urine Color Light-yellow Yellow Urine Clarity Clear Clear Urine pH 7.0 5.0-9.0 Urine Specific [place] 1.006 1.001-1.035 Urine Protein Negative Negative Urine Ketones Negative Negative Urine Blood 3+ H Negative /uL Urine Nitrite Negative Negative Urine Bilirubin Negative Negative Urine Urobilinogen 2 H Negative mg/dL Urine Leukocyte Esterase Trace Negative /uL Urine RBC 88 0 - 3 /hpf Urine Microscopic WBC 14 H 0-3 /HPF Urine Squamous Epithelial Cells None seen <5 /hpf Urine Bacteria None seen None Seen /hpf Urine Osmolality 273 mOsm/kg Urine Creatinine 25.91 L 30.0-125.0 mg/dL Urine Protein/Creatinine Ratio 0.23 Urine Sodium 79 40-220 mmol/L Urine Glucose Normal Normal mg/dL Urine Total Protein < 6.0 1-14 mg/dL White Blood Count 3.5 L 4.4-10.8 10^3/uL Red Blood Count 2.71 L 4.5-5.90 10^6/uL Hemoglobin 10.9 L 13.5-17.5 g/dL Hematocrit 29.9 L 41.0-53.0 % Mean Corpuscular Volume 110.2 H 80.0-100.0 fL Mean Corpuscular Hemoglobin 40.2 H 28.0-32.0 pg Mean Corpuscular Hemoglobin Concent 36.5 H 32.0-36.0 g/dL Red Cell Distribution Width 13.9 11.8-14.3 % Platelet Count 173 140-450 10^3/uL Mean Platelet Volume 7.5 6.9-10.8 fL Neutrophils (%) (Auto) 79.6 37.0-80.0 % Lymphocytes (%) (Auto) 11.4 10.0-50.0 % Monocytes (%) (Auto) 8.0 0.0-12.0 % Eosinophils (%) (Auto) 0.8 0.0-7.0 % Basophils (%) (Auto) 0.2 0.0-2.0 % Neutrophils # (Auto) 2.8 1.6-8.6 10 ^3/uL Lymphocytes # (Auto) 0.4 0.4-5.4 10 ^3/uL Monocytes # (Auto) 0.3 0-1.3 10 ^3/uL Eosinophils # (Auto) 0 0-0.8 10 ^3/uL Basophils # (Auto) 0 0-0.2 10 ^3/uL Nucleated Red Blood Cells 0.2 % Phosphorus Level 3.3 2.4-5.1 mg/dL Total Bilirubin 0.7 0.2-1.0 mg/dL Aspartate Amino Transferase (AST) 45 H 13-40 U/L Alanine Aminotransferase (ALT) 16 7-40 U/L Alkaline Phosphatase 50 46-116 U/L Total Protein 5.8 5.7-8.2 g/dL Albumin 3.6 3.2-4.8 g/dL Vitamin D 25-Hydroxy 41.5 30.0-100 ng/mL Test 02/27/25 06:31 02/26/25 20:56 02/26/25 19:46 02/26/25 18:32 Range/Units Serum Osmolality 238 L 278-298 mOsm/kg Uric Acid 7.5 3.7-9.2 mg/dL Troponin I High Sensitivity 79 *H </=54 ng/L Lactic Acid Level 2.0 0.4-2.0 mmol/L POC Glucose 94 70-106 mg/dl Test 02/26/25 17:56 Range/Units Platelet Estimate Adequate Macrocytosis Slight Plan/Recommendation ASSESSMENT: This is a 74-year old male known outside to Dr. Moreno who initially presented 02/26/2025 with reported generalized weakness subsequently admitted with severe hyponatremia (improving) questionable to acute on chronic systolic heart failure which both Nephrology and Interventional Cardiology services were involved for further evaluation/management. Patient had furthermore been found to have superimposing hypothyroidism for which the patient was subsequently initiated on Levothyroxine therapy as managed by primary team. Of note, the patient does have an underlying history of non-ischemic cardiomyopathy that was discovered back in September of 2019. At that time patient had presented with STEMI which subsequent cardiac catheterization (10/12/2019) had revealed no significant coronary artery disease with an LVEF of 30% as per ventriculogram. Echocardiogram (10/12/2019) at that time had revealed an LVEF of 30-35%. Upon review of records, serial Echocardiograms beyond point of admission back in September of 2019 are found consistent with a chronically reduced LV function (< 35%) which LV function itself appears to have progressively declined over the course of the past few years despite GDMT as underlying medical conditions have permitted. At present, 12-lead electrocardiogram had revealed a sinus rhythm with ventricular pacing at 92bpm, wide QRS of 190 milliseconds. Repeat Echocardiogram (02/27/2025) has revealed a severely reduced LVEF of 10%, severe mitral insufficiency, moderate aortic insufficiency, with an RVSP of 60mmHg consistent with underlying moderate degree pulmonary hypertension (likely type II). Of note, patient is status post [employer] dual-chamber permanent pacemaker implantation in [place] (03/03/2018). Device interrogation at present reveals patient himself is pacer dependent with > 99% ventricular pacing. As the patient is known to have an underlying history of non-ischemic cardiomyopathy with chronic/progressive decline in LV function (10% at present) despite GDMT as underlying medical conditions have permitted, Electrophysiology services were involved by Interventional Cardiology request to evaluate the patient for potential AICD upgrade. Past medical history includes chronic systolic heart failure, non-ischemic cardiomyopathy, status post [employer] dual-chamber permanent pacemaker implantation (03/03/2018 in [place]) chronic kidney disease, hypertension, and previous history of laryngeal cancer status post chemotherapy/radiation Cardiac Catheterization: (10/12/2019) revealed IMPRESSION: Elevated left ventricular end-diastolic pressure at rest, decreased left ventricular ejection fraction, no significant coronary artery disease. Ventriculography in the LEONARD projection shoes an EF of 30% with a global hypokinesis. Enlarged left ventricle. Echocardiogram: (10/12/2019) revealed Technically good study. Sinus rhythm. Left ventricular enlargement with concentric LVH. Valves appear to be structurally normal with mild mitral annular calcification. Left ventricular systolic function is diminished. EF is about 30 to 35% with mild to moderate global hypokinesis. Predominant anterior hypokinesis. Moderate tricuspid regurgitation with moderate mitral insufficiency. RVSP of 34 mmHg. No pericardial effusion masses or vegetations. Echocardiogram: (09/02/2020) revealed Technically difficult study difficult acoustic windows. Sinus rhythm. Left ventricular enlargement with concentric LVH. Valves appear to be structurally normal. Mild mitral annular calcification. Left ventricular systolic function is diminished. There is anterior akinesis with septal hypokinesis. Overall estimated ejection fraction is approximately 25%. Right ventricular function is better. Doppler reveals mild tricuspid and mitral insufficiency. RVSP of 25 to 30 mmHg. No pericardial effusion masses or vegetations. Echocardiogram: (07/09/2024) revealed Technically good study. Sinus rhythm. Left ventricular enlargement. Left atrial enlargement. Valves appear to be struct urally normal. Mild thickening of the aortic and mitral leaflets. Left ventricular function is diminished. EF is about 20% with severe global hypokinesis. Normal RV function. Moderate tricuspid and mitral insufficiency. Moderate aortic insufficiency. No pericardial effusion masses or vegetations. Echocardiogram: (02/27/2025) revealed Technically a good study, Sinus Rhythm. Bi- atrail enlargement, LV enlargement, Valves are normal. LVEF is low, 10% with decreased RV function. Severe MR, moderate AI, mild PI and moderate TR. Pacing lead noted in RV. No PE or masses noted. RVSP of 60mmHg Acute on chronic systolic heart failure, NYH class II Severe non-ischemic cardiomyopathy, LVEF of 10% (02/27/2025) Presence of [employer] dual-chamber permanent pacemaker, pacer dependent (> 99% MAGNETIC LOCATER) Sinus rhythm with wide QRS greater than 120 milliseconds Pulmonary hypertension (likely type II), RVSP of 60mmHg Valvular heart disease, severe mitral insufficiency Laryngeal cancer (history of), s/p chemo/radiation Severe hyponatremia, improved Hypothyroidism, improving LINDY superimposed on CKD ELECTROPHYSIOLOGY SUGGESTIONS FOR MANAGEMENT: Plan for biventricular AICD upgrade with Dr. Dejesus (03/05/2025) at 0900 Patient to be consented and NPO status at midnight (03/05/2025) To hold all anticoagulation/antiplatelet therapy as for now GDMT as concurrent conditions permit is suggested Proceed with close rate and rhythm surveillance Sustain Magnesium level greater than 2.0 Sustain Potassium level greater than 4.0 Follow up renal function and electrolytes Proceed with close hemodynamic surveillance Proceed with optimized blood pressure control Transfuse to sustain HGB level above 7.0 Remainder of cardiac management as per Interventional Cardiology Management of ongoing medical conditions as per primary team Management of comorbidities as per primary team Management of LINDY on CKD as per Nephrology Management in telemetry Follow up business solutions consultant recommendations Will proceed to follow from an EP perspective Further recommendations per clinical progression All available diagnostic labs, EKG's, and images were personally reviewed Patient's status, findings, and plan of care was reviewed and discussed with supervising physician Dr. Dejesus, who is in agreement with current plan of care. Plan of care discussed with and agreed upon by patient / primary RN Prognosis: Guarded Thank you for allowing me to participate in the care of this patient. Further recommendations based on patients clinical course and progression, primary attending, and other consultants. Will continue to follow with primary attending. If you have any questions or concerns, please do not hesitate to contact me. A total of 75 minutes was spent reviewing the patient record, examining the patient, making a diagnostic and therapeutic plan, discussing this plan with medical personnel, following up on diagnostic studies and following the patient for clinical stability excluding any and all procedures. At least 50% of this time was spent in direct, [id number] contact. Plan discussed with: Patient (Patient and Primary RN ) EULALIA PENA March 03, 2025 14:12
[2025-03-04] VITALS (8 sets, daily range): BP systolic 92–139; BP diastolic 50–83; PULSE 63–76; RESP 17–19; TEMP 97.4–98.2; O2SAT 96–98
[2025-03-04 06:02] LABS: Anion Gap 7 (5-15)
[2025-03-04 06:08] LABS: Glucose 89 mg/dL (74-106)
[2025-03-04 06:09] LABS: BUN/Creatinine Ratio 7.7 (10.0-20.0); Blood Urea Nitrogen 13 mg/dL (9-23)
[2025-03-04 06:30] LABS: Calcium 8.7 mg/dL (8.7-10.4); Carbon Dioxide 33 mmol/L (20-31); Chloride 85 mmol/L (98-107); Potassium 3.3 mmol/L (3.5-5.1); Sodium 125 mmol/L (136-145)
--- NOTE | 2025-03-04 09:33 | DVHPN2 ---
Progress Note Date Seen: March 04, 2025 Medical Necessity Reason Pt with a Central, PICC or Fol: No Subjective Patient reports: No new complaints Other Systems: Patient seen and examined by myself today in follow-up Objective vital signs Vital Sign Date Time Temp Pulse Resp B/P (MAP) Pulse Ox O2 Delivery O2 Flow Rate FiO2 03/04/25 05:00 97.7 72 17 116/61 (79) 98 97.7 03/03/25 20:00 Room Air* 0 21 Total Intake and Output 03/03/25 03/03/25 03/04/25 15:00 23:00 07:00 Intake Total 350 ml 425 ml Output Total 800 ml 150 ml 500 ml Balance -800 ml 200 ml -75 ml medications Current Medications Medications Dose Ordered Sig/Earl Route Start Time Stop Time Status Last Admin Dose Admin Furosemide 40 mg DAILY IV 02/27/25 10:00 03/03/25 10:16 40 MG Carvedilol 3.125 mg Q12HR PO 02/26/25 22:00 03/03/25 22:10 3.125 MG Hydralazine HCl 10 mg Q6HP PRN IV 02/26/25 20:15 Sodium Chloride 10 ml Q8HR IV 02/26/25 22:00 03/04/25 06:34 10 ML Acetaminophen/ Hydrocodone Bitart 1 tab Q4HP PRN PO 02/26/25 20:15 03/02/25 21:22 1 TAB Ondansetron HCl 4 mg Q4HP PRN IV 02/26/25 20:15 Docusate Sodium 100 mg BIDPRN PRN PO 02/26/25 20:15 Acetaminophen 650 mg Q6HP PRN PO 02/26/25 20:15 Nitroglycerin 0.4 mg Q5MINP PRN SL 02/26/25 21:30 Morphine Sulfate 2 mg Q30M PRN IV 02/26/25 21:30 Sacubitril/ Valsartan 1 tab BID PO 03/01/25 22:00 03/03/25 22:13 1 TAB Levothyroxine Sodium 100 mcg DAILY IV 03/04/25 10:00 Examination: LUNGS:Normal, CVS:Normal, MSK:Normal laboratory and microbiology Laboratory Tests 03/04/25 04:42 03/01/25 05:06 Test 03/04/25 04:42 Range/Units Serum Glucose 89 74-106 mg/dL Problem List/Assessment/Plan Problem List/Assessment/Plan Acute kidney injury on Chronic kidney disease IIIA unknown baseline available CHF exacerbation Hyponatremia due to excess H2O intake and hypothyroidism Hypomagnesemia Hypokalemia Hypothyroidism, uncontrolled Laryngeal carcinoma Anemia of CKD REC: Kidney function slightly improving Increased urine output Hyponatremia appropriately and slowly is improving Strict I&O Fluids restrictions Agree with diuresis KCl replacement Magnesium sulfate IVPB Levothyroxine replacement Well continue to follow Plan discussed with: Patient My Orders My Orders Orders - ASHWIN ZULETA MD Procedure Category Date Status Time Potassium Efferves[facility] 03/04/25 Transmitted Tab (Klor-Con/Ef) 09:[address] [facility] 03/04/25 Transmitted 10:00 Dietary Evaluation Review Comments: 1. Continue current POC 2. Consider Ensure enlive 240ml BID if PO intake <50% Expected Outcomes/Goals: To meet >75% estimated needs Fu 3-5 days ASHWIN ZULETA MD March 04, 2025 09:33
--- NOTE | 2025-03-04 09:35 | DVHPN2 ---
Progress Note - Dictate Date Seen: March 04, 2025 Medical Necessity Reason Pt with a Central, PICC or Fol: No vital signs Vital Sign Date Time Temp Pulse Resp B/P (MAP) Pulse Ox O2 Delivery O2 Flow Rate FiO2 03/04/25 05:00 97.7 72 17 116/61 (79) 98 97.7 03/03/25 20:00 Room Air* 0 21 Total Intake and Output 03/03/25 03/03/25 03/04/25 15:00 23:00 07:00 Intake Total 350 ml 425 ml Output Total 800 ml 150 ml 500 ml Balance -800 ml 200 ml -75 ml medications Current Medications Medications Dose Ordered Sig/Earl Route Start Time Stop Time Status Last Admin Dose Admin Furosemide 40 mg DAILY IV 02/27/25 10:00 03/03/25 10:16 40 MG Carvedilol 3.125 mg Q12HR PO 02/26/25 22:00 03/03/25 22:10 3.125 MG Hydralazine HCl 10 mg Q6HP PRN IV 02/26/25 20:15 Sodium Chloride 10 ml Q8HR IV 02/26/25 22:00 03/04/25 06:34 10 ML Acetaminophen/ Hydrocodone Bitart 1 tab Q4HP PRN PO 02/26/25 20:15 03/02/25 21:22 1 TAB Ondansetron HCl 4 mg Q4HP PRN IV 02/26/25 20:15 Docusate Sodium 100 mg BIDPRN PRN PO 02/26/25 20:15 Acetaminophen 650 mg Q6HP PRN PO 02/26/25 20:15 Nitroglycerin 0.4 mg Q5MINP PRN SL 02/26/25 21:30 Morphine Sulfate 2 mg Q30M PRN IV 02/26/25 21:30 Sacubitril/ Valsartan 1 tab BID PO 03/01/25 22:00 03/03/25 22:13 1 TAB Levothyroxine Sodium 100 mcg DAILY IV 03/04/25 10:00 Magnesium Sulfate/ Dextrose 100 ml @ 100 mls/hr Q1HR IV 03/04/25 10:00 03/04/25 11:59 UNV laboratory and microbiology Laboratory Tests 03/04/25 04:42 03/01/25 05:06 Test 03/04/25 04:42 Range/Units Serum Glucose 89 74-106 mg/dL Assessment/Plan ASSESSMENT: This is a 74-year old male known outside to Dr. Moreno who initially presented 02/26/2025 with reported generalized weakness subsequently admitted with severe hyponatremia (improving) questionable to acute on chronic systolic heart failure which both Nephrology and Interventional Cardiology services were involved for further evaluation/management. Patient had furthermore been found to have superimposing hypothyroidism for which the patient was subsequently initiated on Levothyroxine therapy as managed by primary team. Of note, the patient does have an underlying history of non-ischemic cardiomyopathy that was discovered back in September of 2019. At that time patient had presented with STEMI which subsequent cardiac catheterization (10/12/2019) had revealed no significant coronary artery disease with an LVEF of 30% as per ventriculogram. Echocardiogram (10/12/2019) at that time had revealed an LVEF of 30-35%. Upon review of records, serial Echocardiograms beyond point of admission back in September of 2019 are found consistent with a chronically reduced LV function (< 35%) which LV function itself appears to have progressively declined over the course of the past few years despite GDMT as underlying medical conditions have permitted. At present, 12-lead electrocardiogram had revealed a sinus rhythm with ventricular pacing at 92bpm, wide QRS of 190 milliseconds. Repeat Echocardiogram (02/27/2025) has revealed a severely reduced LVEF of 10%, severe mitral insufficiency, moderate aortic insufficiency, with an RVSP of 60mmHg consistent with underlying moderate degree pulmonary hypertension (likely type II). Of note, patient is status post [employer] dual-chamber permanent pacemaker implantation in [place] (03/03/2018). Device interrogation at present reveals patient himself is pacer dependent with > 99% ventricular pacing. As the patient is known to have an underlying history of non-ischemic cardiomyopathy with chronic/progressive decline in LV function (10% at present) despite GDMT as underlying medical conditions have permitted, Electrophysiology services were involved by Interventional Cardiology request to evaluate the patient for potential AICD upgrade. Past medical history includes chronic systolic heart failure, non-ischemic cardiomyopathy, status post [employer] dual-chamber permanent pacemaker implantation (03/03/2018 in [place]) chronic kidney disease, hypertension, and previous history of laryngeal cancer status post chemotherapy/radiation Cardiac Catheterization: (10/12/2019) revealed IMPRESSION: Elevated left ventricular end-diastolic pressure at rest, decreased left ventricular ejection fraction, no significant coronary artery disease. Ventriculography in the LEONARD projection shoes an EF of 30% with a global hypokinesis. Enlarged left ventricle. Echocardiogram: (10/12/2019) revealed Technically good study. Sinus rhythm. Left ventricular enlargement with concentric LVH. Valves appear to be structurally normal with mild mitral annular calcification. Left ventricular systolic function is diminished. EF is about 30 to 35% with mild to moderate global hypokinesis. Predominant anterior hypokinesis. Moderate tricuspid regurgitation with moderate mitral insufficiency. RVSP of 34 mmHg. No pericardial effusion masses or vegetations. Echocardiogram: (09/02/2020) revealed Technically difficult study difficult acoustic windows. Sinus rhythm. Left ventricular enlargement with concentric LVH. Valves appear to be structurally normal. Mild mitral annular calcification. Left ventricular systolic function is diminished. There is anterior akinesis with septal hypokinesis. Overall estimated ejection fraction is approximately 25%. Right ventricular function is better. Doppler reveals mild tricuspid and mitral insufficiency. RVSP of 25 to 30 mmHg. No pericardial effusion masses or vegetations. Echocardiogram: (07/09/2024) revealed Technically good study. Sinus rhythm. Left ventricular enlargement. Left atrial enlargement. Valves appear to be structurally normal. Mild thickening of the aortic and mitral leaflets. Left ventricular function is diminished. EF is about 20% with severe global hypokinesis. Normal RV function. Moderate tricuspid and mitral insufficiency. Moderate aortic insufficiency. No pericardial effusion masses or vegetations. Echocardiogram: (02/27/2025) revealed Technically a good study, Sinus Rhythm. Bi- atrail enlargement, LV enlargement, Valves are normal. LVEF is low, 10% with decreased RV function. Severe MR, moderate AI, mild PI and moderate TR. Pacing lead noted in RV. No PE or masses noted. RVSP of 60mmHg Acute on chronic systolic heart failure, NYH class II Severe non-ischemic cardiomyopathy, LVEF of 10% (02/27/2025) Presence of [employer] dual-chamber permanent pacemaker, pacer dependent (> 99% [employer]) Sinus rhythm with wide QRS greater than 120 milliseconds Pulmonary hypertension (likely type II), RVSP of 60mmHg Valvular heart disease, severe mitral insufficiency Laryngeal cancer (history of), s/p chemo/radiation Severe hyponatremia, improved Hypothyroidism, improving LINDY superimposed on CKD ELECTROPHYSIOLOGY SUGGESTIONS FOR MANAGEMENT: Plan for biventricular AICD upgrade with Dr. Dejesus (03/05/2025) at 0900 Patient to be consented and NPO status at midnight (03/05/2025) To hold all anticoagulation/antiplatelet therapy as for now GDMT as concurrent conditions permit is suggested Proceed with close rate and rhythm surveillance Sustain Magnesium level greater than 2.0 Sustain Potassium level greater than 4.0 Follow up renal function and electrolytes Proceed with close hemodynamic surveillance Proceed with optimized blood pressure control Transfuse to sustain HGB level above 7.0 Remainder of cardiac management as per Interventional Cardiology Management of ongoing medical conditions as per primary team Management of comorbidities as per primary team Management of LINDY on CKD as per Nephrology Management in telemetry Follow up [employer] consultant recommendations Will proceed to follow from an EP perspective Further recommendations per clinical progression All available diagnostic labs, EKG's, and images were personally reviewed Patient's status, findings, and plan of care was reviewed and discussed with supervising physician Dr. Dejesus, who is in agreement with current plan of care. Plan of care discussed with and agreed upon by patient / primary RN Prognosis: Guarded Thank you for allowing me to participate in the care of this patient. Further recommendations based on patients clinical course and progression, primary attending, and other consultants. Will continue to follow with primary attending. If you have any questions or concerns, please do not hesitate to contact me. A total of 75 minutes was spent reviewing the patient record, examining the patient, making a diagnostic and therapeutic plan, discussing this plan with medical personnel, following up on diagnostic studies and following the patient for clinical stability excluding any and all procedures. At least 50% of this time was spent in direct, [id number] contact. Plan discussed with: Patient (Patient and Primary RN ) Dietary Evaluation Review Comments: 1. Continue current POC 2. Consider Ensure enlive 240ml BID if PO intake <50% Expected Outcomes/Goals: To meet >75% estimated needs Fu 3-5 days Plan discussed with: Other (Patient and primary rn ) EULALIA PENA March 04, 2025 09:34
[2025-03-04] MEDS: LEVOTHYROXINE SODIUM 100 MCG/5 ML INJ IV SCH (09:39)
[2025-03-04] MEDS: POTASSIUM EFFERVESENT TAB 25 MEQ PO ONE (09:57)
[2025-03-04] MEDS: MAGNESIUM SULFATE 1GM/100ML 100 ML IV SCH (10:51)
--- NOTE | 2025-03-04 12:32 | DVHPN2 ---
Consult Progress Note Subjective Other Systems: Paced rhythm on bus monitor Denies any cardiac symptoms at time of assessment. Objective vital signs Vital Sign Date Time Temp Pulse Resp B/P (MAP) Pulse Ox O2 Delivery O2 Flow Rate FiO2 03/04/25 09:40 139/83 03/04/25 09:39 76 03/04/25 09:00 98.2 18 96 98.2 03/03/25 20:00 Room Air* 0 21 Total Intake and Output 03/03/25 03/03/25 03/04/25 15:00 23:00 07:00 Intake Total 350 ml 425 ml Output Total 800 ml 150 ml 500 ml Balance -800 ml 200 ml -75 ml medications Current Medications Medications Dose Ordered Sig/Earl Route Start Time Stop Time Status Last Admin Dose Admin Furosemide 40 mg DAILY IV 02/27/25 10:00 03/04/25 09:40 40 MG Carvedilol 3.125 mg Q12HR PO 02/26/25 22:00 03/04/25 09:39 3.125 MG Hydralazine HCl 10 mg Q6HP PRN IV 02/26/25 20:15 Sodium Chloride 10 ml Q8HR IV 02/26/25 22:00 03/04/25 06:34 10 ML Acetaminophen/ Hydrocodone Bitart 1 tab Q4HP PRN PO 02/26/25 20:15 03/02/25 21:22 1 TAB Ondansetron HCl 4 mg Q4HP PRN IV 02/26/25 20:15 Docusate Sodium 100 mg BIDPRN PRN PO 02/26/25 20:15 Acetaminophen 650 mg Q6HP PRN PO 02/26/25 20:15 Nitroglycerin 0.4 mg Q5MINP PRN SL 02/26/25 21:30 Morphine Sulfate 2 mg Q30M PRN IV 02/26/25 21:30 Sacubitril/ Valsartan 1 tab BID PO 03/01/25 22:00 03/04/25 09:40 1 TAB Levothyroxine Sodium 100 mcg DAILY IV 03/04/25 10:00 03/04/25 09:39 100 MCG Sodium Chloride 1,000 ml @ 75 mls/hr [id number] IV 03/04/25 19:00 Examination: GENERAL:Abnormal (Generalized weakness), LUNGS:Normal, CVS:Normal (Paced rhythm on monitor), NEURO:Normal laboratory and microbiology Laboratory Tests 03/04/25 04:42 03/01/25 05:06 Test 03/04/25 04:42 Range/Units Serum Glucose 89 74-106 mg/dL Problem List/Assessment/Plan Problem List/Assessment/Plan Acute on chronic HFrEF, NYHA class III Nonischemic cardiomyopathy Presence of permanent pacemaker ([place], [employer]) Hypertension Severe mitral regurgitation Severe hyponatremia History of laryngeal cancer status post chemo and radiation Plan/recommendations (Dr. Moreno): Case discussed with . Transthoracic echocardiogram reveals EF of 10%. Patient underwent a coronary angiogram in 2019 which revealed normal coronaries. Continue with guideline directed medical therapy for CHF as renal function permits. Diuresis as tolerated, monitor sodium levels. Consider spironolactone and Jardiance with stable sodium levels. Patient currently has a permanent pacemaker in place. The patient has been assessed by cardiac electrophysiology team and is scheduled for a biventricular AICD upgrade with on 03/05/25. Thank you for allowing us to care for this patient. Please call with any questions or concerns. This medical document was created using an electronic medical record system with voice recognition software and computerized dictation system. Although this document has been carefully reviewed, there might still be some phonetic and typographical errors. Occasional wrong-word or ``sound-alike substitutions may have occurred due to the inherent limitations of voice recognition software. These areas are purely typographical due to imperfections of the software programs and do not reflect any compromise in the patient's medical care. Please read the chart carefully and recognize, using context, where these substitutions have occurred. Plan discussed with: Patient Dietary Evaluation Review Comments: 1. Continue current POC 2. Consider Ensure enlive 240ml BID if PO intake <50% Expected Outcomes/Goals: To meet >75% estimated needs Fu 3-5 days Date of Service: March 04, 2025 Billing Provider: THUY CHAIREZ Common Visit Codes: [id number] INP/OBS CARE(HIGH) THUY CHAIREZ March 04, 2025 12:32
[2025-03-04 13:34] LABS: INR 1.15 (0.9-1.15); Partial Thromboplastin Time 26.7 SEC (24.5-34.5)
--- NOTE | 2025-03-04 16:10 | DVHPN2 ---
Progress Note Date Seen: March 04, 2025 Medical Necessity Reason Pt with a Central, PICC or Fol: No Subjective Patient reports: No new complaints Review of Systems: HEENT:Normal, CVS:Normal, RESPIRATORY:Normal, GI:Normal, :Normal, MSK:Normal, NEURO:Normal Objective vital signs Vital Sign Date Time Temp Pulse Resp B/P (MAP) Pulse Ox O2 Delivery O2 Flow Rate FiO2 03/04/25 13:00 98.1 72 18 98/57 (71) 96 98.1 03/03/25 20:00 Room Air* 0 21 Total Intake and Output 03/03/25 03/03/25 03/04/25 15:00 23:00 07:00 Intake Total 350 ml 425 ml Output Total 800 ml 150 ml 500 ml Balance -800 ml 200 ml -75 ml medications Current Medications Medications Dose Ordered Sig/Earl Route Start Time Stop Time Status Last Admin Dose Admin Furosemide 40 mg DAILY IV 02/27/25 10:00 03/04/25 09:40 40 MG Carvedilol 3.125 mg Q12HR PO 02/26/25 22:00 03/04/25 09:39 3.125 MG Hydralazine HCl 10 mg Q6HP PRN IV 02/26/25 20:15 Sodium Chloride 10 ml Q8HR IV 02/26/25 22:00 03/04/25 14:18 10 ML Acetaminophen/ Hydrocodone Bitart 1 tab Q4HP PRN PO 02/26/25 20:15 03/02/25 21:22 1 TAB Ondansetron HCl 4 mg Q4HP PRN IV 02/26/25 20:15 Docusate Sodium 100 mg BIDPRN PRN PO 02/26/25 20:15 Acetaminophen 650 mg Q6HP PRN PO 02/26/25 20:15 Nitroglycerin 0.4 mg Q5MINP PRN SL 02/26/25 21:30 Morphine Sulfate 2 mg Q30M PRN IV 02/26/25 21:30 Sacubitril/ Valsartan 1 tab BID PO 03/01/25 22:00 03/04/25 09:40 1 TAB Levothyroxine Sodium 100 mcg DAILY IV 03/04/25 10:00 03/04/25 09:39 100 MCG Sodium Chloride 1,000 ml @ 75 mls/hr [id number] IV 03/04/25 19:00 Examination: GENERAL:Normal, HEENT:Normal, NECK:Normal, LUNGS:Normal, CVS:Normal, ABDOMEN:Normal, MSK:Normal, SKIN:Normal, NEURO:Normal, :Normal laboratory and microbiology Laboratory Tests 03/04/25 04:42 03/01/25 05:06 Test 03/04/25 04:42 Range/Units Serum Glucose 89 74-106 mg/dL Problem List/Assessment/Plan Problem List/Assessment/Plan #1 acute on chronic systolic heart failure: lasix iv , AICD in am #2 hyponatremia: improving, free water restriction #3 s/p pacer #4 h/o laryngeal cancer #5 anemia #6 htn #7 ckd stage 3 a #8 uncontrolled hypothyroidism: iv levothyroxine advance care planning- full code- time spent 19 mins Plan discussed with: Patient My Orders My Orders Orders - CHRIS CHESTER MD Procedure Category Date Status Time NS PHA 03/04/25 Verified 16:15 Potassium Effervesent PHA 03/04/25 Verified Tab (Klor-Con/Ef) 16:15 Basic Metabolic Panel LAB 03/05/25 Verified 06:00 Magnesium LAB 03/05/25 Verified 05:00 Dietary Evaluation Review Comments: 1. Continue current POC 2. Consider Ensure enlive 240ml BID if PO intake <50% Expected Outcomes/Goals: To meet >75% estimated needs Fu 3-5 days Date of Service: March 04, 2025 Billing Provider: CHRIS CHESTER MD Common Visit Codes: [id number] INP/OBS CARE(HIGH) CHRIS CEHSTER MD March 04, 2025 16:10
[2025-03-04] MEDS: SODIUM CHLORIDE 0.9% 1,000 ML IV SCH (16:15)
[2025-03-04] MEDS ORDERED: POTASSIUM EFFERVESENT TAB 25 MEQ PO ONE (16:15)
[2025-03-04] MEDS ORDERED: SODIUM CHLORIDE 0.9% 1,000 ML IV SCH (19:00)
[2025-03-05] VITALS (11 sets, daily range): BP systolic 100–168; BP diastolic 53–102; PULSE 61–85; RESP 12–19; TEMP 97.1–97.9; O2SAT 93–100
[2025-03-05 03:05] LABS: Potassium 3.9 mmol/L (3.5-5.1)
[2025-03-05 03:06] LABS: Anion Gap 5 (5-15)
[2025-03-05 03:11] LABS: BUN/Creatinine Ratio 6.2 (10.0-20.0); Blood Urea Nitrogen 11 mg/dL (9-23); Glucose 97 mg/dL (74-106)
[2025-03-05 03:12] LABS: Magnesium 2.1 mg/dL (1.6-2.6)
[2025-03-05 03:13] LABS: Calcium 8.6 mg/dL (8.7-10.4); Carbon Dioxide 32 mmol/L (20-31); Chloride 87 mmol/L (98-107); Sodium 124 mmol/L (136-145)
--- NOTE | 2025-03-05 08:45 | DVHPN2 ---
Progress Note - Dictate Date Seen: March 05, 2025 Medical Necessity Reason Pt with a Central, PICC or Fol: No vital signs Vital Sign Date Time Temp Pulse Resp B/P (MAP) Pulse Ox O2 Delivery O2 Flow Rate FiO2 03/05/25 01:00 97.4 69 19 110/63 (79) 97 97.4 03/04/25 20:00 Room Air* 0 21 Total Intake and Output 03/04/25 03/04/25 03/05/25 15:00 23:00 07:00 Intake Total 450 ml 900 ml Output Total 500 ml 600 ml Balance -50 ml 300 ml medications Current Medications Medications Dose Ordered Sig/Earl Route Start Time Stop Time Status Last Admin Dose Admin Furosemide 40 mg DAILY IV 02/27/25 10:00 03/04/25 09:40 40 MG Carvedilol 3.125 mg Q12HR PO 02/26/25 22:00 03/04/25 21:39 3.125 MG Hydralazine HCl 10 mg Q6HP PRN IV 02/26/25 20:15 Sodium Chloride 10 ml Q8HR IV 02/26/25 22:00 03/05/25 05:48 10 ML Acetaminophen/ Hydrocodone Bitart 1 tab Q4HP PRN PO 02/26/25 20:15 03/02/25 21:22 1 TAB Ondansetron HCl 4 mg Q4HP PRN IV 02/26/25 20:15 Docusate Sodium 100 mg BIDPRN PRN PO 02/26/25 20:15 Acetaminophen 650 mg Q6HP PRN PO 02/26/25 20:15 Nitroglycerin 0.4 mg Q5MINP PRN SL 02/26/25 21:30 Morphine Sulfate 2 mg Q30M PRN IV 02/26/25 21:30 Sacubitril/ Valsartan 1 tab BID PO 03/01/25 22:00 03/04/25 21:38 1 TAB Levothyroxine Sodium 100 mcg DAILY IV 03/04/25 10:00 03/04/25 09:39 100 MCG Sodium Chloride 1,000 ml @ 50 mls/hr Q20H IV 03/04/25 16:15 03/04/25 16:15 50 MLS/HR laboratory and microbiology Laboratory Tests 03/05/25 02:45 03/01/25 05:06 Test 03/05/25 02:45 Range/Units Serum Glucose 97 74-106 mg/dL Assessment/Plan ASSESSMENT: This is a 74-year old male known outside to Dr. Moreno who initially presented 02/26/2025 with reported generalized weakness subsequently admitted with severe hyponatremia (improving) questionable to acute on chronic systolic heart failure which both Nephrology and Interventional Cardiology services were involved for further evaluation/management. Patient had furthermore been found to have superimposing hypothyroidism for which the patient was subsequently initiated on Levothyroxine therapy as managed by primary team. Of note, the patient does have an underlying history of non-ischemic cardiomyopathy that was discovered back in September of 2019. At that time patient had presented with STEMI which subsequent cardiac catheterization (10/12/2019) had revealed no significant coronary artery disease with an LVEF of 30% as per ventriculogram. Echocardiogram (10/12/2019) at that time had revealed an LVEF of 30-35%. Upon review of records, serial Echocardiograms beyond point of admission back in September of 2019 are found consistent with a chronically reduced LV function (< 35%) which LV function itself appears to have progressively declined over the course of the past few years despite GDMT as underlying medical conditions have permitted. At present, 12-lead electrocardiogram had revealed a sinus rhythm with ventricular pacing at 92bpm, wide QRS of 190 milliseconds. Repeat Echocardiogram (02/27/2025) has revealed a severely reduced LVEF of 10%, severe mitral insufficiency, moderate aortic insufficiency, with an RVSP of 60mmHg consistent with underlying moderate degree pulmonary hypertension (likely type II). Of note, patient is status post [employer] dual-chamber permanent pacemaker implantation in [place] (03/03/2018). Device interrogation at present reveals patient himself is pacer dependent with > 99% ventricular pacing. As the patient is known to have an underlying history of non-ischemic cardiomyopathy with chronic/progressive decline in LV function (10% at present) despite GDMT as underlying medical conditions have permitted, Electrophysiology services were involved by Interventional Cardiology request to evaluate the patient for potential AICD upgrade. Past medical history includes chronic systolic heart failure, non-ischemic cardiomyopathy, status post [employer] dual-chamber permanent pacemaker implantation (03/03/2018 in [place]) chronic kidney disease, hypertension, and previous history of laryngeal cancer status post chemotherapy/radiation Cardiac Catheterization: (10/12/2019) revealed IMPRESSION: Elevated left ventricular end-diastolic pressure at rest, decreased left ventricular ejection fraction, no significant coronary artery disease. Ventriculography in the LEONARD projection shoes an EF of 30% with a global hypokinesis. Enlarged left ventricle. Echocardiogram: (10/12/2019) revealed Technically good study. Sinus rhythm. Left ventricular enlargement with concentric LVH. Valves appear to be structurally normal with mild mitral annular calcification. Left ventricular systolic function is diminished. EF is about 30 to 35% with mild to moderate global hypokinesis. Predominant anterior hypokinesis. Moderate tricuspid regurgitation with moderate mitral insufficiency. RVSP of 34 mmHg. No pericardial effusion masses or vegetations. Echocardiogram: (09/02/2020) revealed Technically difficult study difficult acoustic windows. Sinus rhythm. Left ventricular enlargement with concentric LVH. Valves appear to be structurally normal. Mild mitral annular calcification. Left ventricular systolic function is diminished. There is anterior akinesis with septal hypokinesis. Overall estimated ejection fraction is approximately 25%. Right ventricular function is better. Doppler reveals mild tricuspid and mitral insufficiency. RVSP of 25 to 30 mmHg. No pericardial effusion masses or vegetations. Echocardiogram: (07/09/2024) revealed Technically good study. Sinus rhythm. Left ventricular enlargement. Left atrial enlargement. Valves appear to be structurally normal. Mild thickening of the aortic and mitral leaflets. Left ventricular function is diminished. EF is about 20% with severe global hypokinesis. Normal RV function. Moderate tricuspid and mitral insufficiency. Moderate aortic insufficiency. No pericardial effusion masses or vegetations. Echocardiogram: (02/27/2025) revealed Technically a good study, Sinus Rhythm. Bi- atrail enlargement, LV enlargement, Valves are normal. LVEF is low, 10% with decreased RV function. Severe MR, moderate AI, mild PI and moderate TR. Pacing lead noted in RV. No PE or masses noted. RVSP of 60mmHg Acute on chronic systolic heart failure, NYHA class II Severe non-ischemic cardiomyopathy, LVEF of 10% (02/27/2025) Presence of [employer] dual-chamber permanent pacemaker, pacer dependent (> 99% [employer] SAL[employer]ERSON) Sinus rhythm with wide QRS greater than 120 milliseconds Pulmonary hypertension (likely type II), RVSP of 60mmHg Valvular heart disease, severe mitral insufficiency Laryngeal cancer (history of), s/p chemo/radiation Severe hyponatremia, improved Hypothyroidism, improving LINDY superimposed on CKD ELECTROPHYSIOLOGY SUGGESTIONS FOR MANAGEMENT: Planned for biventricular AICD upgrade with Dr. Dejesus today (03/05/2025) at 0900 Benefits, risks, alternatives, were discussed at length, patient remains agreeable to plan of care Patient is consented and to remain NPO status at midnight for tentative procedure To hold all anticoagulation/antiplatelet therapy as for now GDMT as concurrent conditions permit is suggested Proceed with close rate and rhythm surveillance Sustain Magnesium level greater than 2.0 Sustain Potassium level greater than 4.0 Follow up renal function and electrolytes Proceed with close hemodynamic surveillance Proceed with optimized blood pressure control Transfuse to sustain HGB level above 7.0 Remainder of cardiac management as per Interventional Cardiology Management of ongoing medical conditions as per primary team Management of comorbidities as per primary team Management of LINDY on CKD as per Nephrology Management in telemetry Follow up solutions market consultant recommendations Will proceed to follow from an EP perspective Further recommendations per clinical progression All available diagnostic labs, EKG's, and images were personally reviewed Patient's status, findings, and plan of care was reviewed and discussed with supervising physician Dr. Dejesus, who is in agreement with current plan of care. Plan of care discussed with and agreed upon by patient / primary RN Prognosis: Guarded Thank you for allowing me to participate in the care of this patient. Further recommendations based on patients clinical course and progression, primary attending, and other consultants. Will continue to follow with primary attending. If you have any questions or concerns, please do not hesitate to contact me. A total of 75 minutes was spent reviewing the patient record, examining the patient, making a diagnostic and therapeutic plan, discussing this plan with medical personnel, following up on diagnostic studies and following the patient for clinical stability excluding any and all procedures. At least 50% of this time was spent in direct, [id number] contact. Plan discussed with: Patient (Patient and Primary RN ) Dietary Evaluation Review Comments: 1. Continue current POC 2. Consider Ensure enlive 240ml BID if PO intake <50% Expected Outcomes/Goals: To meet >75% estimated needs Fu 3-5 days Plan discussed with: Patient (Patient and Primary RN ) EULALIA PENA March 05, 2025 08:45
[2025-03-05] MEDS: VANCOMYCIN 1GM/200ML PM 200 ML IV ONE (08:57)
[2025-03-05] MEDS: LIDOCAINE 2%HCL (LOCAL ANESTH.) INJ 20ML MDV ONE ×2 (08:57→09:07)
[2025-03-05] MEDS: VANCOMYCIN HCL 1000 MG VL ONE (08:58)
[2025-03-05] MEDS: fentaNYL CITRATE 100 MCG/2 ML VL ONE (08:58)
[2025-03-05] MEDS: MIDAZOLAM HCL 2MG/2ML 2ml VIAL (1mg/ml) ONE (08:59)
--- NOTE | 2025-03-05 12:11 | DVHPN2 ---
Subjective ICD today Changes from previous H/P or p: Changes Eyes: No Pain, No Vision change, No Conjunctivae inflammation, No Eyelid inflammation, No Other, No Redness ENT: No Ear pain, No Ear discharge, No Nose pain, No Nose discharge, No Nose congestion, No Mouth pain, No Mouth swelling, No Throat pain, No Throat swelling, No Other Cardiovascular: No Chest Pain, No Palpitations, No Orthopnea, No Paroxysmal Noc. Dyspnea, No Edema, No Lt Headedness, No Other Respiratory: No Cough, No Dry, No Shortness of breath, No SOB with excertion, No Wheezing, No Hemoptysis, No Pleuritic Pain, No Sputum, No Other Gastrointestinal: No Nausea, No Vomiting, No Abdominal Pain, No Diarrhea, No Constipation, No Melena, No Hematochezia, No Other Genitourinary: No Dysuria, No Frequency, No Incontinence, No Hematuria, No Retention, No Other Musculoskeletal: No other, No neck pain, No shoulder pain, No arm pain, No back pain, No hand pain, No leg pain, No foot pain Skin: No Rash, No Lesions, No Jaundice, No Bruising, No Other Objective Vitals Vital Signs Date Time Temp Pulse Resp B/P (MAP) Pulse Ox O2 Delivery O2 Flow Rate FiO2 03/05/25 09:00 97.9 85 18 106/59 (75) 93 97.9 03/05/25 08:00 Room Air* 0 21 Intake/Output Intake and Output 03/05/25 07:00 Intake Total 1350 ml Output Total 1100 ml Balance 250 ml Intake Oral 900 ml IV Total 450 ml Output Urine Total 1100 ml General Appearance: Alert, Oriented X3 Lungs: Clear to auscultation Cardiovascular: Regular rate, Normal S1, Normal S2 Medications Current Medications Medications Dose Ordered Sig/Earl Route Start Time Stop Time Status Last Admin Dose Admin Furosemide 40 mg DAILY IV 02/27/25 10:00 03/04/25 09:40 40 MG Carvedilol 3.125 mg Q12HR PO 02/26/25 22:00 03/04/25 21:39 3.125 MG Hydralazine HCl 10 mg Q6HP PRN IV 02/26/25 20:15 Sodium Chloride 10 ml Q8HR IV 02/26/25 22:00 03/05/25 05:48 10 ML Acetaminophen/ Hydrocodone Bitart 1 tab Q4HP PRN PO 02/26/25 20:15 03/02/25 21:22 1 TAB Ondansetron HCl 4 mg Q4HP PRN IV 02/26/25 20:15 Docusate Sodium 100 mg BIDPRN PRN PO 02/26/25 20:15 Acetaminophen 650 mg Q6HP PRN PO 02/26/25 20:15 Nitroglycerin 0.4 mg Q5MINP PRN SL 02/26/25 21:30 Morphine Sulfate 2 mg Q30M PRN IV 02/26/25 21:30 Sacubitril/ Valsartan 1 tab BID PO 03/01/25 22:00 03/04/25 21:38 1 TAB Levothyroxine Sodium 100 mcg DAILY IV 03/04/25 10:00 03/04/25 09:39 100 MCG Sodium Chloride 1,000 ml @ 50 mls/hr Q20H IV 03/04/25 16:15 03/04/25 16:15 50 MLS/HR Laboratory Results Laboratory Tests 03/01/25 05:06 03/05/25 02:45 Chemistry Test 03/05/25 02:45 Calcium Level 8.6 mg/dL (8.7-10.4) L Magnesium Level 2.1 mg/dL (1.6-2.6) Coagulation Test 03/04/25 13:00 Prothrombin Time 12.0 sec (9.3-11.8) H Prothrombin Time INR 1.15 (0.9-1.15) Activated Partial Thromboplast Time 26.7 SEC (24.5-34.5) Urinalysis Test 03/01/25 13:49 Urine Color Light-yellow (Yellow) Urine Clarity Clear (Clear) Urine pH 7.0 (5.0-9.0) Urine Specific [place] 1.006 (1.001-1.035) Urine Protein Negative (Negative) Urine Ketones Negative (Negative) Urine Blood 3+ /uL (Negative) H Urine Nitrite Negative (Negative) Urine Bilirubin Negative (Negative) Urine Urobilinogen 2 mg/dL (Negative) H Urine Leukocyte Esterase Trace /uL (Negative) Urine RBC 88 /hpf (0 - 3) Urine Microscopic WBC 14 /HPF (0-3) H Urine Squamous Epithelial Cells None seen /hpf (<5) Urine Bacteria None seen /hpf (None Seen) Urine Osmolality 273 mOsm/kg Urine Creatinine 25.91 mg/dL (30.0-125.0) L Urine Protein/Creatinine Ratio 0.23 Urine Sodium 79 mmol/L (40-220) Urine Glucose Normal mg/dL (Normal) Urine Total Protein < 6.0 mg/dL (1-14) Assessment/Plan Assessment/Plan Acute on chronic systolic heart failure: Continue Lasix, AICD plan for today Hyponatremia: Sodium is 124 today, continue NS, continue water restriction Laryngeal cancer Chronic anemia Hypertension Chronic kidney disease stage IIIA Uncontrolled hypothyroidism : IV levothyroxine Plan AICD for today Continue IV levothyroxine Gentle hydration with normal saline 50 mL an hour Fluid restriction Monitor the sodium closely The rest of the management will depend on the hospital course Plan discussed with: Patient Date of Service: March 05, 2025 Billing Provider: JESS HOUSE MD Common Visit Codes: [id number] INP/OBS CARE(HIGH) JESS HOUSE MD March 05, 2025 12:11
--- NOTE | 2025-03-05 12:39 | DVH ---
CHEST RADIOGRAPH Indication: S/P PACEMAKER Technique: Single frontal view of the chest was obtained COMPARISON: XY CHEST PORTABLE on DOS: 02/26/25 FINDINGS: Lines and Tubes: Left chest AICD Lungs: Mild congestion. Left basilar subsegmental atelectasis. Pleura: No effusion. No pneumothorax. Cardiomediastinal contours: Unremarkable Bones: Unremarkable IMPRESSION: Mild pulmonary vascular congestion
--- NOTE | 2025-03-05 16:31 | DVHPN2 ---
Progress Note - Dictate Date Seen: March 05, 2025 Medical Necessity Reason Pt with a Central, PICC or Fol: No Subjective Patient not in his room during rounds earlier today. vital signs Vital Sign Date Time Temp Pulse Resp B/P (MAP) Pulse Ox O2 Delivery O2 Flow Rate FiO2 03/05/25 14:53 85 106/59 03/05/25 12:40 12 99 03/05/25 11:43 97.5 97.5 03/05/25 08:00 Room Air* 0 21 Total Intake and Output 03/04/25 03/04/25 03/05/25 15:00 23:00 07:00 Intake Total 450 ml 900 ml Output Total 500 ml 600 ml Balance -50 ml 300 ml medications Current Medications Medications Dose Ordered Sig/Earl Route Start Time Stop Time Status Last Admin Dose Admin Furosemide 40 mg DAILY IV 02/27/25 10:00 03/05/25 13:53 40 MG Carvedilol 3.125 mg Q12HR PO 02/26/25 22:00 03/05/25 13:53 3.125 MG Hydralazine HCl 10 mg Q6HP PRN IV 02/26/25 20:15 Sodium Chloride 10 ml Q8HR IV 02/26/25 22:00 03/05/25 14:02 10 ML Acetaminophen/ Hydrocodone Bitart 1 tab Q4HP PRN PO 02/26/25 20:15 03/02/25 21:22 1 TAB Ondansetron HCl 4 mg Q4HP PRN IV 02/26/25 20:15 Docusate Sodium 100 mg BIDPRN PRN PO 02/26/25 20:15 Acetaminophen 650 mg Q6HP PRN PO 02/26/25 20:15 Nitroglycerin 0.4 mg Q5MINP PRN SL 02/26/25 21:30 Morphine Sulfate 2 mg Q30M PRN IV 02/26/25 21:30 Sacubitril/ Valsartan 1 tab BID PO 03/01/25 22:00 03/05/25 13:53 1 TAB Levothyroxine Sodium 100 mcg DAILY IV 03/04/25 10:00 03/05/25 13:52 100 MCG Sodium Chloride 1,000 ml @ 50 mls/hr Q20H IV 03/04/25 16:15 03/05/25 13:55 50 MLS/HR Vancomycin HCl 200 ml @ 200 mls/hr Q12HR IV 03/05/25 22:00 03/06/25 10:59 objective Exam deferred laboratory and microbiology Laboratory Tests 03/05/25 02:45 03/01/25 05:06 Test 03/05/25 02:45 Range/Units Serum Glucose 97 74-106 mg/dL Assessment/Plan Acute kidney injury on Chronic kidney disease IIIA unknown baseline available CHF exacerbation Hyponatremia due to excess H2O intake and hypothyroidism Hypomagnesemia Hypokalemia Hypothyroidism, uncontrolled Laryngeal carcinoma Anemia of CKD REC: Slight decline in GFR, we will continue to follow closely. Even fluid balance. Dietary Evaluation Review Comments: 1. Continue current POC 2. Consider Ensure enlive 240ml BID if PO intake <50% Expected Outcomes/Goals: To meet >75% estimated needs Fu 3-5 days Plan discussed with: Other VITALIY GRANT MD March 05, 2025 16:31
[2025-03-05] MEDS: VANCOMYCIN 1GM/200ML PM 200 ML IV SCH (21:21)
[2025-03-06] VITALS (8 sets, daily range): BP systolic 110–144; BP diastolic 61–89; PULSE 52–78; RESP 16–18; TEMP 97.5–98.2; O2SAT 92–99
[2025-03-06 06:48] LABS: Basophils # (auto) 0 10 ^3/uL (0-0.2); Eosinophils # (auto) 0 10 ^3/uL (0-0.8); Eosinophils % (auto) 1.1 % (0.0-7.0); Lymphocytes # (auto) 0.4 10 ^3/uL (0.4-5.4); Monocytes # (auto) 0.4 10 ^3/uL (0-1.3); Neutrophils # (auto) 2.5 10 ^3/uL (1.6-8.6); White Blood Cell 3.4 10^3/uL (4.4-10.8)
[2025-03-06 06:50] LABS: Basophils % (auto) 0.7 % (0.0-2.0); Hemoglobin 11.2 g/dL (13.5-17.5); Lymphocytes % (auto) 12.2 % (10.0-50.0); Mean Corpuscular Hemoglobin 39.2 pg (28.0-32.0); Mean Corpuscular Hgb Conc. 35.1 g/dL (32.0-36.0); Mean Corpuscular Volume 111.7 fL (80.0-100.0); Monocytes % (auto) 12.4 % (0.0-12.0); Neutrophils % (auto) 73.6 % (37.0-80.0); Platelet Count (auto) 156 10^3/uL (140-450); Red Blood Cells 2.86 10^6/uL (4.5-5.90); Red Cell Distribution Width 13.9 % (11.8-14.3)
[2025-03-06 07:07] LABS: Alanine Aminotransferase 17 U/L (7-40); Albumin 3.6 g/dL (3.2-4.8); Anion Gap 11 (5-15); Aspartate Aminotransferase 35 U/L (13-40); Bilirubin, Total 0.7 mg/dL (0.2-1.0); Blood Urea Nitrogen 16 mg/dL (9-23); Calcium 9.3 mg/dL (8.7-10.4); Carbon Dioxide 30 mmol/L (20-31); Glucose 87 mg/dL (74-106); Magnesium 1.7 mg/dL (1.6-2.6); Potassium 3.5 mmol/L (3.5-5.1); Total Protein 5.9 g/dL (5.7-8.2)
[2025-03-06 07:12] LABS: Alkaline Phosphatase 43 U/L (46-116); Chloride 87 mmol/L (98-107); Sodium 128 mmol/L (136-145)
[2025-03-06] MEDS: DOXYCYCLINE 100 MG TAB/CAP PO SCH (09:32)
--- NOTE | 2025-03-06 11:38 | DVH ---
XY CHEST XRAY 1 VIEW, HISTORY: CXR FOR PACEMAKER/ICD LEAD PLACEMENT COMPARISON: XY CHEST PORTABLE on DOS: 03/05/25, XY CHEST PORTABLE on DOS: 02/26/25 XY CHEST PORTABLE on DOS: 03/05/25, XY CHEST PORTABLE on DOS: 02/26/25 TECHNICAL DATA: 1 view of the chest was obtained. FINDINGS: Lines and tubes: There is placement of a cardiac pacemaker. Cardiomediastinal silhouette: normal Pulmonary vasculature: normal Lung expansion: normal Lung airspace: normal Lung interstitium: normal Pleura: normal Pneumothorax: no Bones: Unremarkable Other: no IMPRESSION: No acute intrathoracic abnormality.
--- NOTE | 2025-03-06 12:02 | DVHPN2 ---
Consult Progress Note Date Seen: March 06, 2025 Subjective Review of Systems: CVS:Normal, RESPIRATORY:Normal, NEURO:Normal Other Systems: Denies any cardiac symptoms, eager to be discharge home Objective vital signs Vital Sign Date Time Temp Pulse Resp B/P (MAP) Pulse Ox O2 Delivery O2 Flow Rate FiO2 03/06/25 09:32 64 135/74 03/06/25 09:00 97.6 18 94 97.6 03/05/25 20:00 Room Air* 0 21 Total Intake and Output 03/05/25 03/05/25 03/06/25 14:59 22:59 06:59 Intake Total 1350 ml 400 ml Output Total 375 ml 700 ml Balance 975 ml -300 ml medications Current Medications Medications Dose Ordered Sig/Earl Route Start Time Stop Time Status Last Admin Dose Admin Furosemide 40 mg DAILY IV 02/27/25 10:00 03/06/25 09:32 40 MG Carvedilol 3.125 mg Q12HR PO 02/26/25 22:00 03/06/25 09:32 3.125 MG Hydralazine HCl 10 mg Q6HP PRN IV 02/26/25 20:15 Sodium Chloride 10 ml Q8HR IV 02/26/25 22:00 03/06/25 06:12 10 ML Acetaminophen/ Hydrocodone Bitart 1 tab Q4HP PRN PO 02/26/25 20:15 03/02/25 21:22 1 TAB Ondansetron HCl 4 mg Q4HP PRN IV 02/26/25 20:15 Docusate Sodium 100 mg BIDPRN PRN PO 02/26/25 20:15 Acetaminophen 650 mg Q6HP PRN PO 02/26/25 20:15 Nitroglycerin 0.4 mg Q5MINP PRN SL 02/26/25 21:30 Morphine Sulfate 2 mg Q30M PRN IV 02/26/25 21:30 Sacubitril/ Valsartan 1 tab BID PO 03/01/25 22:00 03/06/25 09:32 1 TAB Levothyroxine Sodium 100 mcg DAILY IV 03/04/25 10:00 03/06/25 09:32 100 MCG Sodium Chloride 1,000 ml @ 50 mls/hr Q20H IV 03/04/25 16:15 03/05/25 13:55 50 MLS/HR Doxycycline Monohydrate 100 mg Q12HR PO 03/06/25 10:00 03/06/25 09:32 100 MG Examination: LUNGS:Normal, CVS:Normal, NEURO:Normal laboratory and microbiology Laboratory Tests 03/06/25 05:55 Test 03/06/25 05:55 Range/Units Serum Glucose 87 74-106 mg/dL Problem List/Assessment/Plan Problem List/Assessment/Plan Acute on chronic HFrEF, NYHA class III Nonischemic cardiomyopathy Presence of permanent pacemaker upgraded to GAMING TABLE OPERATOR-device ([place], [employer]) Hypertension Severe mitral regurgitation Severe hyponatremia History of laryngeal cancer status post chemo and radiation Plan/recommendations (Dr. Moreno) Transthoracic echocardiogram reveals EF of 10%. Patient underwent a coronary angiogram in 2019 which revealed normal coronaries. The patient with a permanent pacemaker is status post upgrade to GAMING TABLE OPERATOR-device on 03/05/2025. Continue with guideline directed medical therapy for CHF as renal function permits. Follow-up with Dr. Moreno for wound check on 03/12/2025 at 1300, GAMING TABLE OPERATOR- device interrogation on 03/18/2025 at 1415, and MD follow-up on 03/18/2025 at 1515. Information provided to patient with all questions answered. There is no further cardiac work-up indicated at this time. Kindly call with any questions. Thank you for allowing us to care for this patient. This medical document was created using an electronic medical record system with voice recognition software and computerized dictation system. Although this document has been carefully reviewed, there might still be some phonetic and typographical errors. Occasional wrong-word or ``sound-alike substitutions may have occurred due to the inherent limitations of voice recognition software. These areas are purely typographical due to imperfections of the software programs and do not reflect any compromise in the patient's medical care. Please read the chart carefully and recognize, using context, where these substitutions have occurred. Plan discussed with: Patient, Other Dietary Evaluation Review Comments: 1. Continue current POC 2. Consider Ensure enlive 240ml BID if PO intake <50% Expected Outcomes/Goals: To meet >75% estimated needs Fu 3-5 days Date of Service: March 06, 2025 Billing Provider: EMEKA MARKS Cardiology Common Codes: [id number] HOSP CARE([facility] EMEKA MARKS March 06, 2025 12:01
--- NOTE | 2025-03-06 13:20 | DVHPN2 ---
Progress Note Date Seen: March 06, 2025 Medical Necessity Reason Pt with a Central, PICC or Fol: No Subjective Review of Systems States he feels better today. Patient reports: No new complaints, Feels better Objective vital signs Vital Sign Date Time Temp Pulse Resp B/P (MAP) Pulse Ox O2 Delivery O2 Flow Rate FiO2 03/06/25 09:32 64 135/74 03/06/25 09:00 97.6 18 94 97.6 03/05/25 20:00 Room Air* 0 21 Total Intake and Output 03/05/25 03/05/25 03/06/25 15:00 23:00 07:00 Intake Total 1350 ml 400 ml Output Total 375 ml 700 ml Balance 975 ml -300 ml medications Current Medications Medications Dose Ordered Sig/Earl Route Start Time Stop Time Status Last Admin Dose Admin Furosemide 40 mg DAILY IV 02/27/25 10:00 03/06/25 09:32 40 MG Carvedilol 3.125 mg Q12HR PO 02/26/25 22:00 03/06/25 09:32 3.125 MG Hydralazine HCl 10 mg Q6HP PRN IV 02/26/25 20:15 Sodium Chloride 10 ml Q8HR IV 02/26/25 22:00 03/06/25 06:12 10 ML Acetaminophen/ Hydrocodone Bitart 1 tab Q4HP PRN PO 02/26/25 20:15 03/02/25 21:22 1 TAB Ondansetron HCl 4 mg Q4HP PRN IV 02/26/25 20:15 Docusate Sodium 100 mg BIDPRN PRN PO 02/26/25 20:15 Acetaminophen 650 mg Q6HP PRN PO 02/26/25 20:15 Nitroglycerin 0.4 mg Q5MINP PRN SL 02/26/25 21:30 Morphine Sulfate 2 mg Q30M PRN IV 02/26/25 21:30 Sacubitril/ Valsartan 1 tab BID PO 03/01/25 22:00 03/06/25 09:32 1 TAB Sodium Chloride 1,000 ml @ 50 mls/hr Q20H IV 03/04/25 16:15 03/05/25 13:55 50 MLS/HR Doxycycline Monohydrate 100 mg Q12HR PO 03/06/25 10:00 5/24/25 09:32 100 MG Levothyroxine Sodium 100 mcg QAM@0600 PO 03/07/25 06:00 Examination Gen: Appears stated age, no acute distress Lungs: Bilateral air entry, no rales Heart: RRR, normal S1 and S2 Ext: No edema Neuro: A&Ox4 laboratory and microbiology Laboratory Tests 03/06/25 05:55 Test 03/06/25 05:55 Range/Units Serum Glucose 87 74-106 mg/dL Labs and/or images reviewed: Labs reviewed by me Problem List/Assessment/Plan Problem List/Assessment/Plan Acute kidney injury on Chronic kidney disease IIIA unknown baseline available- downtrending creat, improved GFR 44 CHF exacerbation Hyponatremia due to excess H2O intake and hypothyroidism- improving Na 128 Hypomagnesemia Hypokalemia-resolved Hypothyroidism, uncontrolled Laryngeal carcinoma Anemia of CKD-ongoing REC: -Serial chemistry panels -Strict I&Os -Potassium supplementation prn -Will continue to follow Plan discussed with: Patient Dietary Evaluation Review Comments: 1. Continue current POC 2. Consider Ensure enlive 240ml BID if PO intake <50% Expected Outcomes/Goals: To meet >75% estimated needs Fu 3-5 days XAVIER ECHAVARRIA March 06, 2025 13:20
--- NOTE | 2025-03-06 16:49 | DVHPN2 ---
Subjective Doing well No new complaints Sodium is better at 128 Changes from previous H/P or p: Changes Eyes: No Pain, No Vision change, No Conjunctivae inflammation, No Eyelid inflammation, No Other, No Redness ENT: No Ear pain, No Ear discharge, No Nose pain, No Nose discharge, No Nose congestion, No Mouth pain, No Mouth swelling, No Throat pain, No Throat swelling, No Other Cardiovascular: No Chest Pain, No Palpitations, No Orthopnea, No Paroxysmal Noc. Dyspnea, No Edema, No Lt Headedness, No Other Respiratory: No Cough, No Dry, No Shortness of breath, No SOB with excertion, No Wheezing, No Hemoptysis, No Pleuritic Pain, No Sputum, No Other Gastrointestinal: No Nausea, No Vomiting, No Abdominal Pain, No Diarrhea, No Constipation, No Melena, No Hematochezia, No Other Genitourinary: No Dysuria, No Frequency, No Incontinence, No Hematuria, No Retention, No Other Musculoskeletal: No other, No neck pain, No shoulder pain, No arm pain, No back pain, No hand pain, No leg pain, No foot pain Skin: No Rash, No Lesions, No Jaundice, No Bruising, No Other Objective Vitals Vital Signs Date Time Temp Pulse Resp B/P (MAP) Pulse Ox O2 Delivery O2 Flow Rate FiO2 03/06/25 13:00 97.8 67 18 137/84 (101) 96 97.8 03/06/25 08:00 Room Air* 0 21 Intake/Output Intake and Output 03/06/25 07:00 Intake Total 1750 ml Output Total 1075 ml Balance 675 ml Intake Oral 1200 ml IV Total 550 ml Output Urine Total 1075 ml General Appearance: Alert, Oriented X3 Lungs: Clear to auscultation Cardiovascular: Regular rate, Normal S1, Normal S2 Medications Current Medications Medications Dose Ordered Sig/Earl Route Start Time Stop Time Status Last Admin Dose Admin Furosemide 40 mg DAILY IV 02/27/25 10:00 03/06/25 09:32 40 MG Carvedilol 3.125 mg Q12HR PO 02/26/25 22:00 03/06/25 09:32 3.125 MG Hydralazine HCl 10 mg Q6HP PRN IV 02/26/25 20:15 Sodium Chloride 10 ml Q8HR IV 02/26/25 22:00 03/06/25 15:23 10 ML Acetaminophen/ Hydrocodone Bitart 1 tab Q4HP PRN PO 02/26/25 20:15 03/02/25 21:22 1 TAB Ondansetron HCl 4 mg Q4HP PRN IV 02/26/25 20:15 Docusate Sodium 100 mg BIDPRN PRN PO 02/26/25 20:15 Acetaminophen 650 mg Q6HP PRN PO 02/26/25 20:15 Nitroglycerin 0.4 mg Q5MINP PRN SL 02/26/25 21:30 Morphine Sulfate 2 mg Q30M PRN IV 02/26/25 21:30 Sacubitril/ Valsartan 1 tab BID PO 03/01/25 22:00 03/06/25 09:32 1 TAB Sodium Chloride 1,000 ml @ 50 mls/hr Q20H IV 03/04/25 16:15 03/06/25 15:23 50 MLS/HR Doxycycline Monohydrate 100 mg Q12HR PO 03/06/25 10:00 03/06/25 09:32 100 MG Levothyroxine Sodium 100 mcg QAM@0600 PO 03/07/25 06:00 Laboratory Results Laboratory Tests 03/06/25 05:55 Chemistry Test 03/06/25 05:55 Albumin 3.6 g/dL (3.2-4.8) Calcium Level 9.3 mg/dL (8.7-10.4) Magnesium Level 1.7 mg/dL (1.6-2.6) Total Protein 5.9 g/dL (5.7-8.2) LFT Test 03/06/25 05:55 Alanine Aminotransferase (ALT) 17 U/L (7-40) Alkaline Phosphatase 43 U/L (46-116) L Aspartate Amino Transferase (AST) 35 U/L (13-40) Total Bilirubin 0.7 mg/dL (0.2-1.0) Urinalysis Test 03/01/25 13:49 Urine Color Light-yellow (Yellow) Urine Clarity Clear (Clear) Urine pH 7.0 (5.0-9.0) Urine Specific [place] 1.006 (1.001-1.035) Urine Protein Negative (Negative) Urine Ketones Negative (Negative) Urine Blood 3+ /uL (Negative) H Urine Nitrite Negative (Negative) Urine Bilirubin Negative (Negative) Urine Urobilinogen 2 mg/dL (Negative) H Urine Leukocyte Esterase Trace /uL (Negative) Urine RBC 88 /hpf (0 - 3) Urine Microscopic WBC 14 /HPF (0-3) H Urine Squamous Epithelial Cells None seen /hpf (<5) Urine Bacteria None seen /hpf (None Seen) Urine Osmolality 273 mOsm/kg Urine Creatinine 25.91 mg/dL (30.0-125.0) L Urine Protein/Creatinine Ratio 0.23 Urine Sodium 79 mmol/L (40-220) Urine Glucose Normal mg/dL (Normal) Urine Total Protein < 6.0 mg/dL (1-14) Assessment/Plan Assessment/Plan Acute on chronic systolic heart failure: Continue Lasix, AICD plan for today Hyponatremia: Sodium is 124 today, continue NS, continue water restriction Laryngeal cancer Chronic anemia Hypertension Chronic kidney disease stage IIIA Uncontrolled hypothyroidism : IV levothyroxine Plan AICD for today Continue IV levothyroxine Gentle hydration with normal saline 50 mL an hour Fluid restriction Monitor the sodium closely The rest of the management will depend on the hospital course 03/06/2025: Continue normal saline Fluid restriction Change levothyroxine to p.o. Monitor the sodium closely The patient wanted to go home today however I convinced him to stay 1 more day to check his sodium again in the morning and make sure that is closer to normal Plan discussed with: Patient My Orders Orders - JESS HOUSE MD Procedure Category Date Status Time Levothyroxine Tablet PHA 03/07/25 In Process (Synthroid Tablet) 06:00 Date of Service: March 06, 2025 Billing Provider: JESS HOUSE MD Common Visit Codes: [id number] INP/OBS CARE(HIGH) JESS HOUSE MD March 06, 2025 16:49
[2025-03-06] MEDS: DOCUSATE SOD 100 MG CAP PO PRN (21:09)
[2025-03-07 05:00] VITALS: BP 144/75; PULSE 76; RESP 18; TEMP 98.4; O2SAT 96
[2025-03-07] MEDS: LEVOTHYROXINE SODIUM 100 MCG TAB PO SCH (05:17)
[2025-03-07 07:18] LABS: Anion Gap 9 (5-15); Carbon Dioxide 30 mmol/L (20-31)
[2025-03-07 07:24] LABS: BUN/Creatinine Ratio 10.5 (10.0-20.0); Blood Urea Nitrogen 16 mg/dL (9-23); Glucose 87 mg/dL (74-106)
[2025-03-07 07:25] LABS: Chloride 91 mmol/L (98-107); Potassium 3.2 mmol/L (3.5-5.1); Sodium 130 mmol/L (136-145)
[2025-03-07 08:00] VITALS: PULSE 69; PULSE 80; RESP 18; O2SAT 95
[2025-03-07 09:00] VITALS: BP 124/72; PULSE 80; RESP 18; TEMP 98; O2SAT 95
[2025-03-07] MEDS ORDERED: LEVO100T8 PO (11:49)
[2025-03-07] MEDS ORDERED: SACU1TAB PO (11:49)
[2025-03-07] MEDS: POTASSIUM CHL 20 Meq TABLET PO ONE (12:08)
[2025-03-07 13:00] VITALS: BP 137/75; PULSE 70; RESP 16; TEMP 98.3; O2SAT 95
--- NOTE | 2025-03-07 13:23 | DVHPN2 ---
Progress Note Date Seen: March 07, 2025 Medical Necessity Reason Pt with a Central, PICC or Fol: No Subjective Patient reports: No new complaints, Feels better Objective vital signs Vital Sign Date Time Temp Pulse Resp B/P (MAP) Pulse Ox O2 Delivery O2 Flow Rate FiO2 03/07/25 12:09 80 124/72 03/07/25 09:00 98.0 18 95 98.0 03/07/25 08:00 Room Air* 0 21 Total Intake and Output 03/06/25 03/06/25 03/07/25 15:00 23:00 07:00 Intake Total 400 ml 600 ml 0 ml Output Total 700 ml 375 ml Balance 400 ml -100 ml -375 ml medications Current Medications Medications Dose Ordered Sig/Earl Route Start Time Stop Time Status Last Admin Dose Admin Furosemide 40 mg DAILY IV 02/27/25 10:00 03/07/25 10:00 40 MG Carvedilol 3.125 mg Q12HR PO 02/26/25 22:00 03/07/25 12:09 3.125 MG Hydralazine HCl 10 mg Q6HP PRN IV 02/26/25 20:15 Sodium Chloride 10 ml Q8HR IV 02/26/25 22:00 03/07/25 05:17 10 ML Acetaminophen/ Hydrocodone Bitart 1 tab Q4HP PRN PO 02/26/25 20:15 03/02/25 21:22 1 TAB Ondansetron HCl 4 mg Q4HP PRN IV 02/26/25 20:15 Docusate Sodium 100 mg BIDPRN PRN PO 02/26/25 20:15 03/06/25 21:09 100 MG Acetaminophen 650 mg Q6HP PRN PO 02/26/25 20:15 Nitroglycerin 0.4 mg Q5MINP PRN SL 02/26/25 21:30 Morphine Sulfate 2 mg Q30M PRN IV 02/26/25 21:30 Sacubitril/ Valsartan 1 tab BID PO 03/01/25 22:00 03/07/25 12:08 1 TAB Sodium Chloride 1,000 ml @ 50 mls/hr Q20H IV 03/04/25 16:15 03/06/25 15:23 50 MLS/HR Doxycycline Monohydrate 100 mg Q12HR PO 03/06/25 10:00 03/07/25 12:09 100 MG Levothyroxine Sodium 100 mcg QAM@0600 PO 03/07/25 06:00 03/07/25 05:17 100 MCG Examination Gen: Appears stated age, no acute distress Lungs: Bilateral air entry, no rales Heart: RRR, normal S1 and S2 Ext: No edema Neuro: A&Ox4 laboratory and microbiology Laboratory Tests 03/07/25 06:01 03/06/25 05:55 Test 03/07/25 06:01 Range/Units Serum Glucose 87 74-106 mg/dL Labs and/or images reviewed: Labs reviewed by me Problem List/Assessment/Plan Problem List/Assessment/Plan Acute kidney injury on Chronic kidney disease IIIA unknown baseline available- downtrending creat, improved GFR 44 CHF exacerbation Hyponatremia due to excess H2O intake and hypothyroidism- improving Na 128 Hypomagnesemia Hypokalemia-ongoing Hypothyroidism, uncontrolled Laryngeal carcinoma Anemia of CKD-ongoing REC: -Chemistry panel -Strict I&Os -Potassium supplementation prn -Will continue to follow -Once discharged pt to follow up with nephrology outpt Plan discussed with: Patient Dietary Evaluation Review Comments: 1. Continue current POC 2. Consider Ensure enlive 240ml BID if PO intake <50% Expected Outcomes/Goals: To meet >75% estimated needs Fu 3-5 days XAVIER ECHAVARRIA March 07, 2025 13:23
--- NOTE | 2025-03-07 13:55 | DVHDS2 ---
Discharge Summary Date of Admission February 26, 2025 at 21:26 Date of Discharge: March 07, 2025 Labs/Diagnostic Data: Laboratory Results Test 03/07/25 06:01 03/06/25 05:55 03/04/25 13:00 03/04/25 04:42 Sodium Level 130 mmol/L (136-145) Potassium Level 3.2 mmol/L (3.5-5.1) Chloride Level 91 mmol/L (98-107) Carbon Dioxide Level 30 mmol/L (20-31) Anion Gap 9 (5-15) Blood Urea Nitrogen 16 mg/dL (9-23) Creatinine 1.53 mg/dL (0.700-1.30) Glomerular Filtration Rate Calc 47 mL/min (>90) BUN/Creatinine Ratio 10.5 (10.0-20.0) Serum Glucose 87 mg/dL (74-106) Calcium Level 9.0 mg/dL (8.7-10.4) White Blood Count 3.4 10^3/uL (4.4-10.8) Red Blood Count 2.86 10^6/uL (4.5-5.90) Hemoglobin 11.2 g/dL (13.5-17.5) Hematocrit 32.0 % (41.0-53.0) Mean Corpuscular Volume 111.7 fL (80.0-100.0) Mean Corpuscular Hemoglobin 39.2 pg (28.0-32.0) Mean Corpuscular Hemoglobin Concent 35.1 g/dL (32.0-36.0) Red Cell Distribution Width 13.9 % (11.8-14.3) Platelet Count 156 10^3/uL (140-450) Mean Platelet Volume 7.3 fL (6.9-10.8) Neutrophils (%) (Auto) 73.6 % (37.0-80.0) Lymphocytes (%) (Auto) 12.2 % (10.0-50.0) Monocytes (%) (Auto) 12.4 % (0.0-12.0) Eosinophils (%) (Auto) 1.1 % (0.0-7.0) Basophils (%) (Auto) 0.7 % (0.0-2.0) Neutrophils # (Auto) 2.5 10 ^3/uL (1.6-8.6) Lymphocytes # (Auto) 0.4 10 ^3/uL (0.4-5.4) Monocytes # (Auto) 0.4 10 ^3/uL (0-1.3) Eosinophils # (Auto) 0 10 ^3/uL (0-0.8) Basophils # (Auto) 0 10 ^3/uL (0-0.2) Nucleated Red Blood Cells 0.0 % Magnesium Level 1.7 mg/dL (1.6-2.6) Total Bilirubin 0.7 mg/dL (0.2-1.0) Aspartate Amino Transferase (AST) 35 U/L (13-40) Alanine Aminotransferase (ALT) 17 U/L (7-40) Alkaline Phosphatase 43 U/L (46-116) Total Protein 5.9 g/dL (5.7-8.2) Albumin 3.6 g/dL (3.2-4.8) Prothrombin Time 12.0 sec (9.3-11.8) Prothrombin Time INR 1.15 (0.9-1.15) Activated Partial Thromboplast Time 26.7 SEC (24.5-34.5) Thyroid Stimulating Hormone (TSH) 72.30 uIU/mL (0.55-4.78) Test 03/02/25 05:13 03/01/25 13:49 03/01/25 05:06 02/27/25 06:31 B-Type Natriuretic Peptide 1691.40 pg/mL (0-100) Vitamin B12 Level 454 pg/mL (211-911) Urine Color Light-yellow (Yellow) Urine Clarity Clear (Clear) Urine pH 7.0 (5.0-9.0) Urine Specific [place] 1.006 (1.001-1.035) Urine Protein Negative (Negative) Urine Ketones Negative (Negative) Urine Blood 3+ /uL (Negative) Urine Nitrite Negative (Negative) Urine Bilirubin Negative (Negative) Urine Urobilinogen 2 mg/dL (Negative) Urine Leukocyte Esterase Trace /uL (Negative) Urine RBC 88 /hpf (0 - 3) Urine Microscopic WBC 14 /HPF (0-3) Urine Squamous Epithelial Cells None seen /hpf (<5) Urine Bacteria None seen /hpf (None Seen) Urine Osmolality 273 mOsm/kg Urine Creatinine 25.91 mg/dL (30.0-125.0) Urine Protein/Creatinine Ratio 0.23 Urine Sodium 79 mmol/L (40-220) Urine Glucose Normal mg/dL (Normal) Urine Total Protein < 6.0 mg/dL (1-14) Phosphorus Level 3.3 mg/dL (2.4-5.1) Vitamin D 25-Hydroxy 41.5 ng/mL (30.0-100) Serum Osmolality 238 mOsm/kg (278-298) Uric Acid 7.5 mg/dL (3.7-9.2) Test 02/26/25 20:56 02/26/25 19:46 02/26/25 18:32 02/26/25 17:56 Troponin I High Sensitivity 79 ng/L (</=54) Lactic Acid Level 2.0 mmol/L (0.4-2.0) POC Glucose 94 mg/dl (70-106) Platelet Estimate Adequate Macrocytosis Slight Other Laboratory Tests 03/07/25 06:01 03/06/25 05:55 Brief Hx & Hospital Course: Final diagnoses: Acute on chronic systolic heart failure: Continue Lasix, AICD plan for today Hyponatremia: Sodium is 124 today, continue NS, continue water restriction Laryngeal cancer Chronic anemia Hypertension Chronic kidney disease stage IIIA Uncontrolled hypothyroidism : IV levothyroxine 74-year-old male who was admitted and treated for heart failure and hyponatremia His sodium was very low was given normal saline and was on fluid restriction He also needed a ICD due to his cardiomyopathy His sodium was up from 110 on admission to 130 today which was done over about 8 days He is doing better He is asymptomatic He will be discharged home He was also found with hypothyroidism and was started on IV levothyroxine and then p.o. He will be discharged on levothyroxine 100 mcg daily Add Entresto Follow up with his primary care physician as soon as possible Condition at Discharge: Stable Final Diagnosis/Problems List Acute on chronic systolic heart failure Hyponatremia Laryngeal cancer Chronic anemia Hypertension Chronic kidney disease stage IIIA Uncontrolled hypothyroidism Discharge Disposition: Home SNF Discharge Will this Physician continue t: No Discharge Instruct/Medications Diet: Cardiac 2g Na,low cholest Activity: No Restrictions, As Tolerated Follow Up/Referral: PCP as soon as possible Medications: Levothyroxine 100 mcg daily Entresto Resume the home meds Discharge Statement: "Patient was advised to return to the ER or call 911 if any headaches, dizziness, shortness of breath, chest pain, abdominal pain, bleeding, fevers, or worsening of medical condition. Patient was counseled about treatment plan, medications, possible side effects, patientverbalized understanding. All questions were answered to the best of my ability. This discharge took greater then 30 minutes in planning, reviewing documentation, counseling the patient, and discussing with other team members." ASSESSMENT ASSESSMENT Assessment Acute on chronic systolic heart failure Hyponatremia Laryngeal cancer Chronic anemia Hypertension Chronic kidney disease stage IIIA Uncontrolled hypothyroidism Date of Service: March 07, 2025 Billing Provider: JESS HOUSE MD Common Visit Codes: [id number] DISCH DAY >30min JESS HOUSE MD March 07, 2025 13:55
[2025-03-07 14:13] VITALS: BP 123/76; PULSE 78; RESP 18; TEMP 98.1; O2SAT 95
--- NOTE | 2025-03-08 13:06 | DVHOP2 ---
Operative Report 03/05/25 Indication : Severe chronic non-ischemic cardiomyopathy, LVEF of 10% (02/27/2025), CHF II Presence of [place] dual-chamber permanent pacemaker, pacer dependent (> 99% CLERICAL SUPPORT) Sinus rhythm with wide QRS greater than 120 milliseconds, Valvular heart disease, severe mitral insufficiency PLAN: Proceed with upgrading dual pacemaker to BIVentricular AICD for resynchronization therapy,and primary prevention of sudden cardiac PROCEDURES: 1. Implantation of Left ventricular lead implantation, passive fixation, [facility] 2. Implantation of AICD lead active fixation 3. Implantation of the BIVentricular AICD generator from [facility], MRI 4. Explantation of dual chamber pacemaker generator, [facility] 5. Fluoroscopy images and interpretation. 6. Interrogation and programming of the device. 7. Conscious sedation with fentanyl and Versed for two hours 8. Left subclavian venogram, two axillary accesses obtained 9. Coronary Sinus angiogram PROCEDURE IN DETAILS: 1. After obtaining informed consent with explanation of risks, benefits and alternatives, the patient agreed upon the planned procedure, upgrading dual pacemaker to BIVentricular AICD for resynchronization therapy as well as primary prevention of sudden cardiac . Under a standard fashion, local and systemic anesthetic, conscious sedation with fentanyl and Versed, supervised by myself, left deltopectoral area was prepped and draped. left deltopectoral pocket was made, two axillary accesses were obtained. 2. Through the first access over the 7 [place] sheet, RV AICD lead was advanced into right ventricle, and it was actively placed in the interventricular septum. Sensing R wave is paced at 10 mv, pacing threshold 0.5 v at 0.5ms. Impedance 540 ohms. 3. Through the second access, Left ventricle delivery system was advanced into right heart, using 0.035 inch wire, sheet was advanced into coronary sinus, venogram was done, using inner catheter, glide wire, the best available vein was mid lateral vein, LV lead was advanced over 0. 014 inch into that vein. Pacing threshold a 1. 5 V at 0.5 ms. There are diaphragmatic stimulation noted in few vectors as well. 5. Old Pacemaker generator from [facility] was removed, and then New BIV AICD generator from [facility] was connected to the leads. The old sensing / pacing lead was used for pacing for stability due to being pacemaker dependant. The new sensing/pacing lead from new AICD lead was capped. In the new BIVAICD generator, proximal SVC port was capped as well. The pocket was irrigated with antibiotic solution. Antibiotic powder/pouch was placed in the pocket. The skin was closed in 2 layers and at the end was stapled. CONCLUSION: 1. Status post successful upgrading pacemaker to BIV AICD, Device was programmed into DDDR lower rate of 60 bpm 2. There was no immediate complication. HOWARD SARAH MD March 08, 2025 13:06
--- NOTE | 2025-03-09 13:42 | ECG ---
[facility] Test Date: 2025-03-05 Test Time: 11:50:19 Pat Name: KARLA LUNDY Department: Room: 0281T B Gender: M Client Executive: ONEIDA : 1950 Requested By: HOWARD SARAH Order Number: [id number] Reading MD: Measurements Intervals [place] Rate: 64 P: 89 ID: [id number] QRS: -13 QRSD: 134 T: -75 QT: 466 QTc: 480 Interpretive Statements Sinus rhythm with 1st degree AV block Left ventricular hypertrophy with QRS widening and repolarization abnormality ST elevation, consider lateral injury or acute infarct ACUTE GA Please click the below link to view image of tracing.
== END 2025-03-07 16:20 | disposition home or self-care (01) | DRG 276 ==
LOC: ER 17:30 → OVERFLOW 21:26 → TELE-WESTW 23:37
PROVIDERS: ADMIT Internal Medicine Geriatric Medicine; ATTEND Internal Medicine
PROC: 0JH609Z Insertion of Cardiac Resynchronization Defibrillator Pulse Generator into Chest Subcutaneous Tissue and Fascia, Open Approach (ICD-10-PCS; principal; 2025-03-05)
PROC: 02HK3KZ Insertion of Defibrillator Lead into Right Ventricle, Percutaneous Approach (ICD-10-PCS; 2025-03-05)
PROC: 02H63KZ Insertion of Defibrillator Lead into Right Atrium, Percutaneous Approach (ICD-10-PCS; 2025-03-05)
PROC: 0JPT0PZ Removal of Cardiac Rhythm Related Device from Trunk Subcutaneous Tissue and Fascia, Open Approach (ICD-10-PCS; 2025-03-05)
PROC: B517YZZ Fluoroscopy of Left Subclavian Vein using Other Contrast (ICD-10-PCS; 2025-03-05)
DX: I13.0 Hypertensive heart and chronic kidney disease with heart failure and stage 1 through stage 4 chronic kidney disease, or unspecified chronic kidney disease (principal); I50.23 Acute on chronic systolic (congestive) heart failure; E87.1 Hypo-osmolality and hyponatremia; N17.9 Acute kidney failure, unspecified; E87.20 Acidosis, unspecified; I42.8 Other cardiomyopathies; E87.6 Hypokalemia; E83.42 Hypomagnesemia; E03.9 Hypothyroidism, unspecified; I08.1 Rheumatic disorders of both mitral and tricuspid valves; D63.1 Anemia in chronic kidney disease; N18.31 Chronic kidney disease, stage 3a; I25.2 Old myocardial infarction; Z85.21 Personal history of malignant neoplasm of larynx; Z92.3 Personal history of irradiation; Z92.21 Personal history of antineoplastic chemotherapy; Z85.819 Personal history of malignant neoplasm of unspecified site of lip, oral cavity, and pharynx
CPT/HCPCS: 33233; 33249; 36012; 36415; 71045; 76775; 80048; 80053; 81001; 82306; 82570; 82607; 82962; 83605; 83735; 83880; 83930; 83935; 84100; 84156; 84295; 84300; 84443; 84484; 84550; 85025; 85610; 85730; 86850; 86900; 86901; 93005; 93306; 96361; 96374; 97110; 97163; 99152; G0378; J2250; J3480; J3490